=== PATIENT | female | born 1955 | race African-American/Black ===

== ENCOUNTER 2017-03-30 18:05 | Inpatient (IN) | payer OTHER ==
[2017-03-30 18:15] VITALS: BMI 34.7
--- NOTE | 2017-03-30 18:33 | HP ---
Admission [facility] Chief Complaint: i WANT TO GO TO REHAB Allergies/Adverse Reactions: Allergies Allergy/AdvReac Type Severity Reaction Status Date / Time Fish Containing Products Allergy Severe Hives Verified 08/19/16 14:03 tomato Allergy Severe Hives Verified 08/19/16 14:03 No Known Drug Allergies Allergy Verified 08/19/16 16:46 History of Present Illness: 61 YEARS OLD FEMALE WITH LONG HISTORY OF ALCOHOL COCAINE NICOTINE DEPENDENCE, HAS HIV + NEUROPATHY, ASTHMA COPD SCHIZOPHRENIA IS ADMITTED TO REHAB Exam Limitations: No Limitations - Ebola screening Have you traveled outside of the country in the last 21 days: No Have you had contact with anyone from an Ebola affected area: No Have you been sick,other than usual withdrawal symptoms: No Do you have a fever: No - Review of Systems Constitutional: Weight Stable EENT: reports: No Symptoms Reported Respiratory: reports: Cough, SOB with Exertion Cardiac: reports: No Symptoms Reported GI: reports: Indigestion : reports: No Symptoms Reported Musculoskeletal: reports: Back Pain Integumentary: reports: Change in Color (RIGHT ARM COCAINE REACTION DERMOTOLOGY) Endocrine: reports: No Symptoms Reported Hematology: reports: No Symptoms Reported Psychiatric: reports: Judgement Intact, Depressed Other Systems: Reviewed and Negative Patient History - Patient Medical History Hx Anemia: No Hx Asthma: Yes (ON ALBUTEROL) Hx Chronic Obstructive Pulmonary Disease (COPD): Yes Hx Cancer: No Hx Cardiac Disorders: No Hx Congestive Heart Failure: No Hx Hypertension: Yes (NO MEDS.) Hx Hypercholesterolemia: No Hx Pacemaker: No HX Cerebrovascular Accident: No Hx Seizures: No Hx Dementia: No Hx Diabetes: No Hx Gastrointestinal Disorders: Yes Hx Liver Disease: No Hx Genitourinary Disorders: No Hx Sexually Transmitted Disorders: No Hx Renal Disease (ESRD): No Hx Thyroid Disease: No Hx Human Immunodeficiency Virus (HIV): Yes (2010) Hx Hepatitis C: Yes Hx Depression: No Hx Suicide Attempt: Yes (2006 CUT SELF) Hx Bipolar Disorder: No Hx Schizophrenia: Yes - Patient Surgical History Past Surgical History: Yes Hx Neurologic Surgery: No Hx Cataract Extraction: No Hx Cardiac Surgery: No Hx Lung Surgery: No Hx Breast Surgery: No Hx Breast Biopsy: No Hx Abdominal Surgery: No Hx Appendectomy: No Hx Cholecystectomy: No Hx Genitourinary Surgery: No Hx Section: Yes (1976) Hx Orthopedic Surgery: No Hx Hysterectomy: No Anesthesia Reaction: No - PPD History Previous Implant?: Yes Documented Results: Negative w/proof Implanted On Prior [facility] Admission?: Yes Date: 08/21/16 PPD to be Administered?: No - Reproductive History Patient is a Female of Child Bearing Age (11 -55 yrs old): No Patient : No - Smoking Cessation Smoking history: Current every day smoker Have you smoked in the past 12 months: Yes Aproximately how many cigarettes per day: 40 Cigars Per Day: 0 Hx Chewing Tobacco Use: No Initiated information on smoking cessation: Yes 'Breaking Loose' booklet given: 03/30/17 - Substance & Tx. History Hx Alcohol Use: Yes Hx Substance Use: Yes Substance Use Type: Alcohol, Cocaine Hx Substance Use Treatment: Yes - Substances Abused Alcohol Route: Oral Frequency: Daily Amount used: 4 QART BEER Age of first use: 14 Date of Last Use: 03/27/17 Family Disease History - Family Disease History Family Disease History: CA: Father, Mother Admission Physical Exam [facility] - Vital Signs Vital Signs: Vital Signs - 24 hr 03/30/17 18:09 Temperature 96.4 F L Pulse Rate 85 Respiratory 18 Rate Blood Pressure 138/96 - Physical General Appearance: Yes: Nourished, Appropriately Dressed HEENTM: Yes: Hearing grossly Normal, Normal ENT Inspection, Normocephalic, Normal Voice Respiratory: Yes: Chest Non-Tender, Lungs Clear, Normal Breath Sounds, No Respiratory Distress, No Accessory Muscle Use Neck: Yes: Supple, Trachea in good position Breast: Yes: Breasts Symetrical Cardiology: Yes: Regular Rhythm, Regular Rate, S1, S2 Abdominal: Yes: Normal Bowel Sounds, Non Tender, Soft Genitourinary: Yes: Within Normal Limits Back: Yes: Normal Inspection Musculoskeletal: Yes: full range of Motion, Gait Steady Extremities: Yes: Normal Range of Motion, Non-Tender, Other (LESION RIGHT ARM COCAINE INDUCED) Neurological: Yes: Fully Oriented, Alert, Motor Strength 5/5, Normal Mood/Affect , Normal Response Integumentary: Yes: Warm, Rash (RIGHT ARM) Lymphatic: Yes: Within Normal Limits - Diagnostic (1) COPD (chronic obstructive pulmonary disease) Current Visit: Yes Status: Chronic Qualifiers: COPD type: emphysema Emphysema type: other Qualified Code(s): J43.8 - Other emphysema (2) HIV (human immunodeficiency virus infection) Current Visit: Yes Status: Chronic Comment: TRIUMP (3) Hepatitis C Current Visit: Yes Status: Resolved Qualifiers: Viral hepatitis chronicity: unspecified Comment: SCHEDULE FOR TREATMENT (4) Hypertension Current Visit: Yes Status: Resolved Qualifiers: Hypertension type: essential hypertension Qualified Code(s): I10 - Essential (primary) hypertension Comment: NO TREATMENT (5) Nicotine dependence Current Visit: Yes Status: Acute Qualifiers: Nicotine product type: cigarettes Substance use status: in withdrawal Qualified Code(s): F17.213 - Nicotine dependence, cigarettes, with withdrawal (6) Alcohol dependence with uncomplicated withdrawal Current Visit: Yes Status: Acute (7) Schizophrenia simplex Current Visit: Yes Status: Suspected (8) Skin lesion Current Visit: Yes Status: Acute Comment: RIGHT ARM Cleared for Admission S - Detox or Rehab [facility] Level of Care: Observation Bed Detox Regimen/Protocol: Not Applicable Claeared for Rehab Admission: Yes [facility] Breath Alcohol Content Breath Alcohol Content: 0 Urine Pregancy Test - Result Urine Test Results: Negative- NO Line Present Urine Drug Screen - Results Drug Screen Negative: No Urine Drug Screen Results: [place]-Cocaine, TCA-Tricyclic Antidepress
[2017-03-30] MEDS ORDERED: P-EPHED 60MG/TRIPROLIDI 2.5MG TABLET PO PRN (18:38)
[2017-03-30] MEDS ORDERED: MAGNESIUM CITRATE 300 ML BOTTLE PO PRN (18:38)
[2017-03-30] MEDS ORDERED: diphenhydrAMINE HCL 50 MG CAPSULE PO PRN (18:38)
[2017-03-30] MEDS ORDERED: LOPERAMIDE HCL 2 MG CAPSULE PO PRN (18:38)
[2017-03-30] MEDS ORDERED: MAGNESIUM HYDROX 2400MG/30ML ORAL SUSPENSION 30 ML CUP PO PRN (18:38)
[2017-03-30] MEDS ORDERED: MAG HYDROX/AL HYDROX/SIMETH 30 ML UNIT-DOSE CUP PO PRN (18:38)
[2017-03-30] MEDS ORDERED: NICOTINE POLACRILEX 4 MG GUM BC PRN (18:38)
[2017-03-30] MEDS ORDERED: BACITRACIN 0.9 GM PACKET TP ONE (18:41)
[2017-03-30] MEDS: GABAPENTIN 300 MG CAPSULE (FP) PO SCH (21:40)
[2017-03-30] MEDS: THIAMINE HCL 100 MG TABLET (FP) PO SCH (21:40)
[2017-03-30] MEDS: BUDESONIDE/FORMETEROL FUMARATE 80/4.5 mcg INHALER IH SCH (21:41)
[2017-03-30] MEDS: MINERAL OIL/PETROLAT/WATER TOPICAL CREAM 113 GM JAR TP SCH (21:42)
--- NOTE | 2017-03-30 22:18 | PN ---
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 On risperdal 2 mg/hs + seroquel 200 mg/hs + trazodone 200 mg/hs. Already known to [facility] from a previous admission in 2016. 61 y/o female referred for rehabilitation treatment. Issues : alcohol and cocaine dependence. Co-morbid with schizophrenia and nicotine dependence. Medications confirmed via review of pharmacy claims. Filled scripts at [facility] on 03/21 + 03/07 + 02/07/17. Previous records from [facility] :read and appreciated.Spoke to patient via telephone. She states that she took her medications last night.Eager to resume these medications. Medical history is appreciated through [facility] report. BP = 138/96 P = 85 R = 18 .Noted. Plan : Risperdal 1 mg po now (one dose) Seroquel 100 mg po now (one dose) Trazodone 100 mg now (one dose) Brief discussion of side effects/benefits of each drug with patient. She states that she has been on this regimen for years. As a caution,patient is granted only ONE dose (reduced) of each medication. Coverage psychiatrist will follow in the morning.Patient is in agreement with this careplan.
[2017-03-30] MEDS ORDERED: risperiDONE 1 MG TABLET (FP) PO STA (22:37)
[2017-03-30] MEDS ORDERED: QUEtiapine FUMARATE 100 MG TABLET (FP) PO STA (22:42)
[2017-03-30] MEDS ORDERED: traZODone HCL 100 MG TABLET (FP) PO STA (22:43)
[2017-03-31] LABS: URINE APPEARANCE CLOUDY; URINE BILIRUBIN NEGATIVE (NEGATIVE); URINE BLOOD NEGATIVE (NEGATIVE); URINE COLOR DKYELLOW; URINE GLUCOSE (UA) NEGATIVE (NEGATIVE); URINE KETONE NEGATIVE (NEGATIVE); URINE NITRITE NEGATIVE (NEGATIVE); URINE PROTEIN NEGATIVE (NEGATIVE); URINE UROBILINOGEN 4.0 E.U/dl E.U./dl (0.2-1.0)
[2017-03-31 00:06] LABS: URINE LEUK ESTERASE 1+ (NEGATIVE)
[2017-03-31 00:10] LABS: URINE BACTERIA MANY /hpf (NONE SEEN); URINE MUCUS RARE; URINE RBC 1 /hpf (0-3); URINE WBC 45 /hpf (3-5)
[2017-03-31] MEDS: GABAPENTIN 300 MG CAPSULE (FP) PO SCH ×3 (06:35→21:09)
[2017-03-31] MEDS ORDERED: PT OWN MED DRAWER 7, Y5N ONE (08:17)
[2017-03-31] MEDS: NICOTINE 21 MG/24 HOURS TOPICAL PATCH TD SCH (09:42)
[2017-03-31] MEDS: BUDESONIDE/FORMETEROL FUMARATE 80/4.5 mcg INHALER IH SCH ×2 (09:43→21:08)
[2017-03-31] MEDS: PRENATAL VITAMINS W/ FOLIC ACID TABLET (FP) PO SCH (09:43)
[2017-03-31 10:06] LABS: MCH 34.1 pg (25.7-33.7); MCHC 34.3 g/dl (32.0-36.0); MEAN CELL VOLUME 99.3 fl (80-96); MEAN PLT VOLUME 9.5 fl (7.5-11.1); PLATELET COUNT 147 K/MM3 (134-434); RDW 12.5 % (11.6-15.6)
[2017-03-31 10:29] LABS: ALBUMIN 2.9 g/dl (3.4-5.0); ALK PHOS 98 U/L (45-117); ANION GAP 7 (8-16); BILIRUBIN,TOTAL 0.3 mg/dL (0.2-1.0); CALCIUM 8.5 mg/dL (8.5-10.1); CO2 30 mmol/L (21-32); COCKROFT - GAULT 144.2195; CREATININE 0.6 mg/dL (0.55-1.02); GLUCOSE,RANDOM 101 mg/dL (74-106); SGOT/AST 56 U/L (15-37); SGPT/ALT 53 U/L (12-78); TOT PROT 6.5 g/dl (6.4-8.2)
[2017-03-31] MEDS ORDERED: RANITIDINE HCL 150 MG TABLET (FP) PO SCH ×2 (13:00)
[2017-03-31] MEDS: COLLOIDAL OATMEAL 1 BAR EACH TP PRN (13:21)
[2017-03-31] MEDS ORDERED: POTASSIUM CHLORIDE TABS 20 MEQ TABLET.ER (FP) PO ONE (14:35)
--- NOTE | 2017-03-31 14:39 | PN ---
S Progress Note Note: Pt. has a hx. of syphillis previously treated with IM bicillin,no treatment needed at this time.
--- NOTE | 2017-03-31 17:36 | EKG ---
Test Reason : Blood Pressure : / mmHG Vent. Rate : 072 BPM Atrial Rate : 072 BPM P-R Int : 152 ms QRS Dur : 080 ms QT Int : 412 ms P-R-T Axes : 075 060 074 degrees QTc Int : 451 ms SINUS RHYTHM WITH PREMATURE ATRIAL COMPLEXES OTHERWISE NORMAL ECG NO PREVIOUS ECGS AVAILABLE Confirmed by FLORI VALDIVIA, JADE ([id number]) on 03/31/2017 5:35:53 PM Referred By: Confirmed By:JADE RUBY MD
[2017-03-31] MEDS: risperiDONE 2 MG TABLET PO SCH (21:08)
[2017-03-31] MEDS: traZODone HCL 100 MG TABLET (FP) PO SCH (21:09)
[2017-03-31] MEDS: QUEtiapine FUMARATE 200 MG TABLET PO SCH (21:09)
[2017-03-31] MEDS: MINERAL OIL/PETROLAT/WATER TOPICAL CREAM 113 GM JAR TP SCH (21:09)
[2017-03-31] MEDS: POTASSIUM CHLORIDE TABS 20 MEQ TABLET.ER (FP) PO SCH (21:09)
[2017-03-31] MEDS: THIAMINE HCL 100 MG TABLET (FP) PO SCH (21:09)
[2017-04-01] MEDS: GABAPENTIN 300 MG CAPSULE (FP) PO SCH ×3 (06:52→21:11)
[2017-04-01] MEDS: RANITIDINE HCL 150 MG TABLET (FP) PO SCH (07:29)
[2017-04-01] MEDS ORDERED: PT OWN MED DRAWER 7, Y5N ONE ×2 (08:09→21:08)
--- NOTE | 2017-04-01 08:56 | HP ---
Psychiatrist Admission - Data Date of interview: 04/01/17 Admission source: [facility] Identifying data: This is the second 3e inpatient rehabilitation admission for this 61 year old single black female mother of 3, supported by [facility] and residing alone. Medical History: HTN, COPD, HIV+ since 2009, Hep C, Asthma, peripheral neuropathy. Smokes cigarettes 2 PPD. Psychiatric History: Patient reports she was diagnosed with Schizoprenia and sees at [facility] outpatient clinic, she denies history of psychiatric hospitalizations. Currently on Trazodone 100 mg po hs, Seroquel 200 mg am and 400 mg po hs, Risperdal 1mg po hs. Physical/Sexual Abuse/Trauma History: Denies history of sexual, physical and verbal abuse. Vital Signs: Vital Signs - 24 hr 04/01/17 04/01/17 04/01/17 00:30 03:30 07:21 Temperature 98.2 F Pulse Rate 92 H Respiratory 17 18 18 Rate Blood Pressure 124/84 Allergies/Adverse Reactions: Allergies Allergy/AdvReac Type Severity Reaction Status Date / Time Fish Containing Products Allergy Severe Hives Verified 08/19/16 14:03 tomato Allergy Severe Hives Verified 08/19/16 14:03 No Known Drug Allergies Allergy Verified 08/19/16 16:46 Date of last physical exam: 03/30/17 Concur with the findings of this exam: Yes - Substance Abuse/Tx History Hx Alcohol Use: Yes Hx Substance Use: Yes Substance Use Type: Alcohol (4 quarts of beer), Cocaine Hx Substance Use Treatment: Yes (3E in 2016) - Admission Criteria Previous failed treatment: Yes Poor recovery environment: Yes Comorbidities: Yes Lacks judgement: Yes Mental Status Exam - Mental Status Exam Alert and Oriented to: Time, Place, Person Cognitive Function: Grossly Intact Patient Appearance: Well Groomed Mood: Irritable Affect: Mood Congruent Patient Behavior: Appropriate, Cooperative Speech Pattern: Clear, Appropriate Voice Loudness: Normal Thought Process: Intact, Goal Oriented Thought Disorder: Not Present Hallucinations: Denies Suicidal Ideation: Denies Homicidal Ideation: Denies Insight/Judgement: Fair Sleep: Fair Appetite: Fair Muscle strength/Tone: Normal Gait/Station: Normal Psychiatric Findings - Problem List ([place] 1, 2,3) (1) Nicotine dependence Current Visit: Yes Status: Acute Qualifiers: Nicotine product type: cigarettes Substance use status: in withdrawal Qualified Code(s): F17.213 - Nicotine dependence, cigarettes, with withdrawal (2) COPD (chronic obstructive pulmonary disease) Current Visit: Yes Status: Chronic Qualifiers: COPD type: emphysema Emphysema type: other Qualified Code(s): J43.8 - Other emphysema (3) HIV (human immunodeficiency virus infection) Current Visit: Yes Status: Chronic Comment: TRIUMP (4) Hepatitis C Current Visit: Yes Status: Resolved Qualifiers: Viral hepatitis chronicity: unspecified Comment: SCHEDULE FOR TREATMENT (5) Hypertension Current Visit: Yes Status: Resolved Qualifiers: Hypertension type: essential hypertension Qualified Code(s): I10 - Essential (primary) hypertension Comment: NO TREATMENT (6) Paranoid schizophrenia Current Visit: Yes Status: Acute (7) Alcohol dependence Current Visit: Yes Status: Acute (8) Cocaine dependence Current Visit: Yes Status: Acute - Initial Treatment Plan Initial Treatment Plan: Will continue her current medications, monitor progress as needed.
[2017-04-01] MEDS: BUDESONIDE/FORMETEROL FUMARATE 80/4.5 mcg INHALER IH SCH ×2 (09:09→21:13)
[2017-04-01] MEDS: NICOTINE 21 MG/24 HOURS TOPICAL PATCH TD SCH (09:09)
[2017-04-01] MEDS: POTASSIUM CHLORIDE TABS 20 MEQ TABLET.ER (FP) PO SCH ×2 (09:09→21:11)
[2017-04-01] MEDS: PRENATAL VITAMINS W/ FOLIC ACID TABLET (FP) PO SCH (09:09)
[2017-04-01] MEDS: ALBUTEROL SO4 6.7 GM HFA INHALER IH PRN (17:25)
[2017-04-01] MEDS: ACETAMINOPHEN 325 MG TABLET (FP) PO PRN (18:59)
[2017-04-01] MEDS: risperiDONE 2 MG TABLET PO SCH (21:11)
[2017-04-01] MEDS: THIAMINE HCL 100 MG TABLET (FP) PO SCH (21:11)
[2017-04-01] MEDS: QUEtiapine FUMARATE 200 MG TABLET PO SCH (21:11)
[2017-04-01] MEDS: traZODone HCL 100 MG TABLET (FP) PO SCH (21:11)
[2017-04-01] MEDS: MINERAL OIL/PETROLAT/WATER TOPICAL CREAM 113 GM JAR TP SCH (21:13)
[2017-04-02] MEDS: GABAPENTIN 300 MG CAPSULE (FP) PO SCH ×3 (06:56→21:12)
[2017-04-02] MEDS ORDERED: PT OWN MED DRAWER 7, Y5N ONE ×3 (08:03→21:15)
[2017-04-02] MEDS: PRENATAL VITAMINS W/ FOLIC ACID TABLET (FP) PO SCH (09:12)
[2017-04-02] MEDS: NICOTINE 21 MG/24 HOURS TOPICAL PATCH TD SCH (09:12)
[2017-04-02] MEDS: POTASSIUM CHLORIDE TABS 20 MEQ TABLET.ER (FP) PO SCH ×2 (09:12→21:12)
[2017-04-02] MEDS: BUDESONIDE/FORMETEROL FUMARATE 80/4.5 mcg INHALER IH SCH ×2 (09:12→21:13)
[2017-04-02] MEDS: RANITIDINE HCL 150 MG TABLET (FP) PO SCH (09:13)
[2017-04-02] MEDS: traZODone HCL 100 MG TABLET (FP) PO SCH (21:12)
[2017-04-02] MEDS: risperiDONE 2 MG TABLET PO SCH (21:12)
[2017-04-02] MEDS: QUEtiapine FUMARATE 200 MG TABLET PO SCH (21:12)
[2017-04-02] MEDS: MINERAL OIL/PETROLAT/WATER TOPICAL CREAM 113 GM JAR TP SCH (21:14)
[2017-04-02] MEDS: ALBUTEROL SO4 6.7 GM HFA INHALER IH PRN (21:14)
[2017-04-02] MEDS: THIAMINE HCL 100 MG TABLET (FP) PO SCH (21:55)
[2017-04-03] MEDS: GABAPENTIN 300 MG CAPSULE (FP) PO SCH ×3 (06:30→21:06)
[2017-04-03] MEDS ORDERED: PT OWN MED DRAWER 7, Y5N ONE ×2 (08:03→20:24)
[2017-04-03] MEDS: PRENATAL VITAMINS W/ FOLIC ACID TABLET (FP) PO SCH (09:39)
[2017-04-03] MEDS: POTASSIUM CHLORIDE TABS 20 MEQ TABLET.ER (FP) PO SCH ×2 (09:39→21:07)
[2017-04-03] MEDS: RANITIDINE HCL 150 MG TABLET (FP) PO SCH (09:39)
[2017-04-03] MEDS: BUDESONIDE/FORMETEROL FUMARATE 80/4.5 mcg INHALER IH SCH ×2 (09:40→22:15)
[2017-04-03] MEDS: NICOTINE 21 MG/24 HOURS TOPICAL PATCH TD SCH (09:41)
[2017-04-03] MEDS: THIAMINE HCL 100 MG TABLET (FP) PO SCH (21:06)
[2017-04-03] MEDS: QUEtiapine FUMARATE 200 MG TABLET PO SCH (21:06)
[2017-04-03] MEDS: risperiDONE 2 MG TABLET PO SCH (21:07)
[2017-04-03] MEDS: traZODone HCL 100 MG TABLET (FP) PO SCH (21:07)
[2017-04-03] MEDS: hydrOXYzine PAMOATE 50 MG CAPSULE (FP) PO PRN (21:08)
[2017-04-03] MEDS: MINERAL OIL/PETROLAT/WATER TOPICAL CREAM 113 GM JAR TP SCH (22:14)
[2017-04-04] MEDS: GABAPENTIN 300 MG CAPSULE (FP) PO SCH ×3 (06:36→21:03)
[2017-04-04] MEDS ORDERED: PT OWN MED DRAWER 7, Y5N ONE ×2 (08:24→23:00)
[2017-04-04] MEDS: BUDESONIDE/FORMETEROL FUMARATE 80/4.5 mcg INHALER IH SCH ×2 (09:47→21:04)
[2017-04-04] MEDS: NICOTINE 21 MG/24 HOURS TOPICAL PATCH TD SCH (09:47)
[2017-04-04] MEDS: POTASSIUM CHLORIDE TABS 20 MEQ TABLET.ER (FP) PO SCH ×2 (09:48→21:05)
[2017-04-04] MEDS: RANITIDINE HCL 150 MG TABLET (FP) PO SCH (09:48)
[2017-04-04] MEDS: PRENATAL VITAMINS W/ FOLIC ACID TABLET (FP) PO SCH (09:48)
[2017-04-04] MEDS: QUEtiapine FUMARATE 200 MG TABLET PO SCH (21:03)
[2017-04-04] MEDS: risperiDONE 2 MG TABLET PO SCH (21:03)
[2017-04-04] MEDS: THIAMINE HCL 100 MG TABLET (FP) PO SCH (21:03)
[2017-04-04] MEDS: traZODone HCL 100 MG TABLET (FP) PO SCH (21:03)
[2017-04-04] MEDS: MINERAL OIL/PETROLAT/WATER TOPICAL CREAM 113 GM JAR TP SCH (21:05)
[2017-04-05] MEDS: GABAPENTIN 300 MG CAPSULE (FP) PO SCH ×3 (06:36→21:17)
[2017-04-05] MEDS ORDERED: PT OWN MED DRAWER 7, Y5N ONE ×4 (08:30→23:55)
[2017-04-05] MEDS: RANITIDINE HCL 150 MG TABLET (FP) PO SCH (09:09)
[2017-04-05] MEDS: POTASSIUM CHLORIDE TABS 20 MEQ TABLET.ER (FP) PO SCH ×2 (09:09→21:16)
[2017-04-05] MEDS: NICOTINE 21 MG/24 HOURS TOPICAL PATCH TD SCH (09:10)
[2017-04-05] MEDS: BUDESONIDE/FORMETEROL FUMARATE 80/4.5 mcg INHALER IH SCH ×2 (09:10→21:19)
[2017-04-05] MEDS: PRENATAL VITAMINS W/ FOLIC ACID TABLET (FP) PO SCH (09:10)
[2017-04-05] MEDS: ACETAMINOPHEN 325 MG TABLET (FP) PO PRN (16:39)
[2017-04-05] MEDS: THIAMINE HCL 100 MG TABLET (FP) PO SCH (21:16)
[2017-04-05] MEDS: risperiDONE 2 MG TABLET PO SCH (21:17)
[2017-04-05] MEDS: QUEtiapine FUMARATE 200 MG TABLET PO SCH (21:17)
[2017-04-05] MEDS: MINERAL OIL/PETROLAT/WATER TOPICAL CREAM 113 GM JAR TP SCH (21:17)
[2017-04-05] MEDS: traZODone HCL 100 MG TABLET (FP) PO SCH (21:20)
[2017-04-06] MEDS: GABAPENTIN 300 MG CAPSULE (FP) PO SCH ×3 (06:46→21:13)
[2017-04-06] MEDS ORDERED: PT OWN MED DRAWER 7, Y5N ONE ×4 (08:35→23:03)
[2017-04-06] MEDS: POTASSIUM CHLORIDE TABS 20 MEQ TABLET.ER (FP) PO SCH ×2 (09:43→21:13)
[2017-04-06] MEDS: RANITIDINE HCL 150 MG TABLET (FP) PO SCH (09:44)
[2017-04-06] MEDS: NICOTINE 21 MG/24 HOURS TOPICAL PATCH TD SCH (09:44)
[2017-04-06] MEDS: PRENATAL VITAMINS W/ FOLIC ACID TABLET (FP) PO SCH (09:44)
[2017-04-06] MEDS: BUDESONIDE/FORMETEROL FUMARATE 80/4.5 mcg INHALER IH SCH ×2 (09:44→21:14)
[2017-04-06] MEDS: ACETAMINOPHEN 325 MG TABLET (FP) PO PRN (20:07)
[2017-04-06] MEDS: traZODone HCL 100 MG TABLET (FP) PO SCH (21:12)
[2017-04-06] MEDS: risperiDONE 2 MG TABLET PO SCH (21:13)
[2017-04-06] MEDS: MINERAL OIL/PETROLAT/WATER TOPICAL CREAM 113 GM JAR TP SCH (21:13)
[2017-04-06] MEDS: QUEtiapine FUMARATE 200 MG TABLET PO SCH (21:13)
[2017-04-06] MEDS: THIAMINE HCL 100 MG TABLET (FP) PO SCH (21:14)
[2017-04-07] MEDS: GABAPENTIN 300 MG CAPSULE (FP) PO SCH ×3 (06:42→21:05)
[2017-04-07] MEDS ORDERED: PT OWN MED DRAWER 7, Y5N ONE ×5 (08:30→22:53)
[2017-04-07] MEDS: RANITIDINE HCL 150 MG TABLET (FP) PO SCH (09:42)
[2017-04-07] MEDS: POTASSIUM CHLORIDE TABS 20 MEQ TABLET.ER (FP) PO SCH (09:42)
[2017-04-07] MEDS: BUDESONIDE/FORMETEROL FUMARATE 80/4.5 mcg INHALER IH SCH ×2 (09:42→21:08)
[2017-04-07] MEDS: NICOTINE 21 MG/24 HOURS TOPICAL PATCH TD SCH (09:42)
[2017-04-07] MEDS: PRENATAL VITAMINS W/ FOLIC ACID TABLET (FP) PO SCH (09:42)
[2017-04-07 10:01] LABS: COCKROFT - GAULT 144.2195; CREATININE 0.6 mg/dL (0.55-1.02)
--- NOTE | 2017-04-07 12:49 | PN ---
[facility] Progress Note Note: k is 4.0 will d/c potassium
[2017-04-07] MEDS: FLUOCINONIDE 0.05% CREAM (15 GM TUBE) TP SCH ×2 (15:00→21:08)
[2017-04-07] MEDS: risperiDONE 2 MG TABLET PO SCH (21:05)
[2017-04-07] MEDS: THIAMINE HCL 100 MG TABLET (FP) PO SCH (21:05)
[2017-04-07] MEDS: QUEtiapine FUMARATE 200 MG TABLET PO SCH (21:05)
[2017-04-07] MEDS: traZODone HCL 100 MG TABLET (FP) PO SCH (21:05)
[2017-04-07] MEDS: MINERAL OIL/PETROLAT/WATER TOPICAL CREAM 113 GM JAR TP SCH (21:07)
[2017-04-07] MEDS: hydrOXYzine PAMOATE 50 MG CAPSULE (FP) PO PRN (22:53)
[2017-04-08] MEDS: GABAPENTIN 300 MG CAPSULE (FP) PO SCH ×3 (06:36→21:11)
[2017-04-08] MEDS ORDERED: PT OWN MED DRAWER 7, Y5N ONE ×4 (08:24→19:19)
[2017-04-08] MEDS: PRENATAL VITAMINS W/ FOLIC ACID TABLET (FP) PO SCH (10:00)
[2017-04-08] MEDS: RANITIDINE HCL 150 MG TABLET (FP) PO SCH (10:00)
[2017-04-08] MEDS: NICOTINE 21 MG/24 HOURS TOPICAL PATCH TD SCH (10:01)
[2017-04-08] MEDS: BUDESONIDE/FORMETEROL FUMARATE 80/4.5 mcg INHALER IH SCH ×2 (10:01→21:13)
[2017-04-08] MEDS: FLUOCINONIDE 0.05% CREAM (15 GM TUBE) TP SCH ×2 (10:03→21:12)
[2017-04-08] MEDS: ALBUTEROL SO4 6.7 GM HFA INHALER IH PRN (15:12)
[2017-04-08] MEDS: ACETAMINOPHEN 325 MG TABLET (FP) PO PRN (18:02)
[2017-04-08] MEDS: traZODone HCL 100 MG TABLET (FP) PO SCH (21:11)
[2017-04-08] MEDS: risperiDONE 2 MG TABLET PO SCH (21:12)
[2017-04-08] MEDS: QUEtiapine FUMARATE 200 MG TABLET PO SCH (21:12)
[2017-04-08] MEDS: THIAMINE HCL 100 MG TABLET (FP) PO SCH (21:12)
[2017-04-08] MEDS: diphenhydrAMINE HCL 25 MG CAPSULE (FP) PO SCH (21:13)
[2017-04-08] MEDS: COLLOIDAL OATMEAL 1 BAR EACH TP PRN (22:10)
[2017-04-08] MEDS: MINERAL OIL/PETROLAT/WATER TOPICAL CREAM 113 GM JAR TP SCH (22:11)
[2017-04-09] MEDS: GABAPENTIN 300 MG CAPSULE (FP) PO SCH ×3 (07:00→21:09)
[2017-04-09] MEDS ORDERED: PT OWN MED DRAWER 7, Y5N ONE ×6 (07:01→23:07)
[2017-04-09] MEDS: RANITIDINE HCL 150 MG TABLET (FP) PO SCH (09:30)
[2017-04-09] MEDS: PRENATAL VITAMINS W/ FOLIC ACID TABLET (FP) PO SCH (09:30)
[2017-04-09] MEDS: BUDESONIDE/FORMETEROL FUMARATE 80/4.5 mcg INHALER IH SCH ×2 (09:31→21:10)
[2017-04-09] MEDS: NICOTINE 21 MG/24 HOURS TOPICAL PATCH TD SCH (09:31)
[2017-04-09] MEDS: ALBUTEROL SO4 6.7 GM HFA INHALER IH PRN (09:31)
[2017-04-09] MEDS: FLUOCINONIDE 0.05% CREAM (15 GM TUBE) TP SCH ×2 (09:32→21:11)
[2017-04-09] MEDS: THIAMINE HCL 100 MG TABLET (FP) PO SCH (21:09)
[2017-04-09] MEDS: diphenhydrAMINE HCL 25 MG CAPSULE (FP) PO SCH (21:09)
[2017-04-09] MEDS: risperiDONE 2 MG TABLET PO SCH (21:09)
[2017-04-09] MEDS: QUEtiapine FUMARATE 200 MG TABLET PO SCH (21:09)
[2017-04-09] MEDS: traZODone HCL 100 MG TABLET (FP) PO SCH (21:09)
[2017-04-09] MEDS: MINERAL OIL/PETROLAT/WATER TOPICAL CREAM 113 GM JAR TP SCH (21:13)
[2017-04-10] MEDS: GABAPENTIN 300 MG CAPSULE (FP) PO SCH ×3 (06:33→21:15)
[2017-04-10] MEDS ORDERED: PT OWN MED DRAWER 7, Y5N ONE ×3 (08:14→23:47)
[2017-04-10] MEDS: RANITIDINE HCL 150 MG TABLET (FP) PO SCH (09:30)
[2017-04-10] MEDS: BUDESONIDE/FORMETEROL FUMARATE 80/4.5 mcg INHALER IH SCH ×2 (09:30→21:18)
[2017-04-10] MEDS: FLUOCINONIDE 0.05% CREAM (15 GM TUBE) TP SCH ×2 (09:30→21:17)
[2017-04-10] MEDS: PRENATAL VITAMINS W/ FOLIC ACID TABLET (FP) PO SCH (09:30)
[2017-04-10] MEDS: NICOTINE 21 MG/24 HOURS TOPICAL PATCH TD SCH (09:31)
[2017-04-10] MEDS: risperiDONE 2 MG TABLET PO SCH (21:15)
[2017-04-10] MEDS: traZODone HCL 100 MG TABLET (FP) PO SCH (21:15)
[2017-04-10] MEDS: THIAMINE HCL 100 MG TABLET (FP) PO SCH (21:15)
[2017-04-10] MEDS: QUEtiapine FUMARATE 200 MG TABLET PO SCH (21:15)
[2017-04-10] MEDS: diphenhydrAMINE HCL 25 MG CAPSULE (FP) PO SCH (21:15)
[2017-04-10] MEDS: MINERAL OIL/PETROLAT/WATER TOPICAL CREAM 113 GM JAR TP SCH (21:17)
[2017-04-11] MEDS: GABAPENTIN 300 MG CAPSULE (FP) PO SCH ×3 (06:58→21:09)
[2017-04-11] MEDS ORDERED: PT OWN MED DRAWER 7, Y5N ONE (08:02)
[2017-04-11] MEDS: ACETAMINOPHEN 325 MG TABLET (FP) PO PRN (09:11)
[2017-04-11] MEDS: RANITIDINE HCL 150 MG TABLET (FP) PO SCH (09:12)
[2017-04-11] MEDS: NICOTINE 21 MG/24 HOURS TOPICAL PATCH TD SCH (09:12)
[2017-04-11] MEDS: FLUOCINONIDE 0.05% CREAM (15 GM TUBE) TP SCH ×2 (09:13→21:11)
[2017-04-11] MEDS: PRENATAL VITAMINS W/ FOLIC ACID TABLET (FP) PO SCH (09:13)
[2017-04-11] MEDS: BUDESONIDE/FORMETEROL FUMARATE 80/4.5 mcg INHALER IH SCH ×2 (09:13→21:11)
[2017-04-11] MEDS: guaiFENesin/D-METHORPHAN HB 10 ML UNIT-DOSE CUPS PO PRN (14:28)
[2017-04-11] MEDS: MENTHOL/PHENOL 1 EACH UD MM PRN (14:29)
[2017-04-11] MEDS: THIAMINE HCL 100 MG TABLET (FP) PO SCH (21:08)
[2017-04-11] MEDS: traZODone HCL 100 MG TABLET (FP) PO SCH (21:09)
[2017-04-11] MEDS: QUEtiapine FUMARATE 200 MG TABLET PO SCH (21:09)
[2017-04-11] MEDS: risperiDONE 2 MG TABLET PO SCH (21:09)
[2017-04-11] MEDS: diphenhydrAMINE HCL 25 MG CAPSULE (FP) PO SCH (21:10)
[2017-04-11] MEDS: MINERAL OIL/PETROLAT/WATER TOPICAL CREAM 113 GM JAR TP SCH (21:11)
[2017-04-12] MEDS: GABAPENTIN 300 MG CAPSULE (FP) PO SCH ×3 (06:25→21:02)
[2017-04-12] MEDS: guaiFENesin/D-METHORPHAN HB 10 ML UNIT-DOSE CUPS PO PRN (06:27)
[2017-04-12] MEDS ORDERED: PT OWN MED DRAWER 7, Y5N ONE ×4 (08:23→21:04)
--- NOTE | 2017-04-12 09:52 | PN ---
[facility] Progress Note Note: Pt. c/o chest pain after an upsetting phone call with her daughter. Vital Signs - 8 hr 04/12/17 04/12/17 04/12/17 03:30 06:44 09:00 Temperature 98.4 F 97.5 F L Pulse Rate 84 83 Respiratory 18 18 18 Rate Blood Pressure 108/76 105/73 O2 Sat by Pulse 96 Oximetry (%) Laboratory Last Values WBC 5.0 K/mm3 (4.0-10.0) 03/31/17 07:00 RBC 3.91 M/mm3 (3.60-5.2) 03/31/17 07:00 Hgb 13.3 GM/dL (10.7-15.3) 03/31/17 07:00 Hct 38.9 % (32.4-45.2) 03/31/17 07:00 MCV 99.3 fl (80-96) H 03/31/17 07:00 MCHC 34.3 g/dl (32.0-36.0) 03/31/17 07:00 RDW 12.5 % (11.6-15.6) 03/31/17 07:00 Plt Count 147 K/MM3 (134-434) 03/31/17 07:00 MPV 9.5 fl (7.5-11.1) 03/31/17 07:00 Sodium 142 mmol/L (136-145) 04/07/17 07:00 Potassium 4.0 mmol/L (3.5-5.1) D 04/07/17 07:00 Chloride 107 mmol/L (98-107) 04/07/17 07:00 Carbon Dioxide 27 mmol/L (21-32) 04/07/17 07:00 Anion Gap 8 (8-16) 04/07/17 07:00 BUN 11 mg/dL (7-18) D 04/07/17 07:00 Creatinine 0.6 mg/dL (0.55-1.02) 04/07/17 07:00 Creat Clearance w eGFR > 60 (>60) 03/31/17 07:00 Random Glucose 82 mg/dL (74-106) 04/07/17 07:00 Calcium 9.0 mg/dL (8.5-10.1) 04/07/17 07:00 Total Bilirubin 0.3 mg/dL (0.2-1.0) D 03/31/17 07:00 AST 56 U/L (15-37) H D 03/31/17 07:00 ALT 53 U/L (12-78) D 03/31/17 07:00 Alkaline Phosphatase 98 U/L (45-117) 03/31/17 07:00 Total Protein 6.5 g/dl (6.4-8.2) 03/31/17 07:00 Albumin 2.9 g/dl (3.4-5.0) L 03/31/17 07:00 Urine Color Dkyellow 03/30/17 23:40 Urine Appearance Cloudy 03/30/17 23:40 Urine pH 6.0 (5.0-8.0) 03/30/17 23:40 Ur Specific [place] 1.015 (1.005-1.025) 03/30/17 23:40 Urine Protein Negative (NEGATIVE) 03/30/17 23:40 Urine Glucose (UA) Negative (NEGATIVE) 03/30/17 23:40 Urine Ketones Negative (NEGATIVE) 03/30/17 23:40 Urine Blood Negative (NEGATIVE) 03/30/17 23:40 Urine Nitrite Negative (NEGATIVE) 03/30/17 23:40 Urine Bilirubin Negative (NEGATIVE) 03/30/17 23:40 Urine Urobilinogen 4.0 e.u/dl E.U./dl (0.2-1.0) H 03/30/17 23:40 Ur Leukocyte Esterase 1+ (NEGATIVE) H D 03/30/17 23:40 Urine RBC 1 /hpf (0-3) 03/30/17 23:40 Urine WBC 45 /hpf (3-5) 03/30/17 23:40 Ur Epithelial Cells Rare /hpf (FEW) 03/30/17 23:40 Urine Bacteria Many /hpf (NONE SEEN) 03/30/17 23:40 Urine Mucus Rare 03/30/17 23:40 RPR Titer Reactive 1:2 (NONREACTIVE) H D 03/31/17 07:00 T.pallidum Ab (MHA) Previously reactive (NONREACTIVE) 03/31/17 07:00 Chest : Slight tenderness along costo-chondral joints. Lungs : clear to A&P Heart : RR,no murmur EKG : NSR, no significant changes from 03/30/17 Dx. : non-specific chest pain P : Aspirin 81mg stat O2 via nasal cannula 2L/min cardiac enzymes stat
[2017-04-12] MEDS ORDERED: ASPIRIN 325 MG ENTERIC COATED TABLET (FP) PO ONE (09:54)
[2017-04-12] MEDS: BUDESONIDE/FORMETEROL FUMARATE 80/4.5 mcg INHALER IH SCH ×2 (10:57→21:02)
[2017-04-12] MEDS: RANITIDINE HCL 150 MG TABLET (FP) PO SCH (10:57)
[2017-04-12] MEDS: PRENATAL VITAMINS W/ FOLIC ACID TABLET (FP) PO SCH (10:57)
[2017-04-12] MEDS: NICOTINE 21 MG/24 HOURS TOPICAL PATCH TD SCH (10:58)
[2017-04-12] MEDS: FLUOCINONIDE 0.05% CREAM (15 GM TUBE) TP SCH ×2 (10:59→21:05)
[2017-04-12 12:57] LABS: TROPONIN I < 0.02 ng/ml (0.00-0.05)
--- NOTE | 2017-04-12 14:18 | PN ---
[facility] Progress Note Note: No more Chest Pain,pt. is up and about attending group. Vital Signs - 8 hr 04/12/17 04/12/17 06:44 09:00 Temperature 98.4 F 97.5 F L Pulse Rate 84 83 Respiratory 18 18 Rate Blood Pressure 108/76 105/73 O2 Sat by Pulse 96 Oximetry (%) Laboratory Results - last 24 hr 04/12/17 10:15 Creatine Kinase 52 Troponin I < 0.02 cardiac enzymes are WNL Dx. : Non-Cardiac chest pain
[2017-04-12] MEDS: ALBUTEROL SO4 6.7 GM HFA INHALER IH PRN (21:02)
[2017-04-12] MEDS: diphenhydrAMINE HCL 25 MG CAPSULE (FP) PO SCH (21:02)
[2017-04-12] MEDS: THIAMINE HCL 100 MG TABLET (FP) PO SCH (21:03)
[2017-04-12] MEDS: QUEtiapine FUMARATE 200 MG TABLET PO SCH (21:03)
[2017-04-12] MEDS: traZODone HCL 100 MG TABLET (FP) PO SCH (21:03)
[2017-04-12] MEDS: risperiDONE 2 MG TABLET PO SCH (21:04)
[2017-04-12] MEDS: MINERAL OIL/PETROLAT/WATER TOPICAL CREAM 113 GM JAR TP SCH (21:05)
[2017-04-13] MEDS: GABAPENTIN 300 MG CAPSULE (FP) PO SCH ×3 (06:19→21:07)
[2017-04-13] MEDS ORDERED: PT OWN MED DRAWER 7, Y5N ONE ×2 (08:34→23:13)
[2017-04-13] MEDS: ASPIRIN COATED 81 MG TABLET.EC PO SCH (09:25)
[2017-04-13] MEDS: BUDESONIDE/FORMETEROL FUMARATE 80/4.5 mcg INHALER IH SCH ×2 (09:25→21:08)
[2017-04-13] MEDS: FLUOCINONIDE 0.05% CREAM (15 GM TUBE) TP SCH ×2 (09:26→21:10)
[2017-04-13] MEDS: RANITIDINE HCL 150 MG TABLET (FP) PO SCH (09:26)
[2017-04-13] MEDS: PRENATAL VITAMINS W/ FOLIC ACID TABLET (FP) PO SCH (09:26)
[2017-04-13] MEDS: NICOTINE 21 MG/24 HOURS TOPICAL PATCH TD SCH (09:27)
[2017-04-13] MEDS: THIAMINE HCL 100 MG TABLET (FP) PO SCH (21:07)
[2017-04-13] MEDS: traZODone HCL 100 MG TABLET (FP) PO SCH (21:07)
[2017-04-13] MEDS: QUEtiapine FUMARATE 200 MG TABLET PO SCH (21:07)
[2017-04-13] MEDS: risperiDONE 2 MG TABLET PO SCH (21:07)
[2017-04-13] MEDS: diphenhydrAMINE HCL 25 MG CAPSULE (FP) PO SCH (21:07)
[2017-04-13] MEDS: MINERAL OIL/PETROLAT/WATER TOPICAL CREAM 113 GM JAR TP SCH (21:10)
[2017-04-14] MEDS: MENTHOL/PHENOL 1 EACH UD MM PRN ×3 (00:17→13:16)
[2017-04-14] MEDS: GABAPENTIN 300 MG CAPSULE (FP) PO SCH ×3 (06:20→21:10)
[2017-04-14] MEDS: guaiFENesin/D-METHORPHAN HB 10 ML UNIT-DOSE CUPS PO PRN ×3 (06:22→21:10)
[2017-04-14] MEDS ORDERED: PT OWN MED DRAWER 7, Y5N ONE ×3 (08:28→22:37)
[2017-04-14] MEDS: BUDESONIDE/FORMETEROL FUMARATE 80/4.5 mcg INHALER IH SCH ×2 (09:40→21:14)
[2017-04-14] MEDS: FLUOCINONIDE 0.05% CREAM (15 GM TUBE) TP SCH ×2 (09:41→21:14)
[2017-04-14] MEDS: NICOTINE 21 MG/24 HOURS TOPICAL PATCH TD SCH (09:41)
[2017-04-14] MEDS: PRENATAL VITAMINS W/ FOLIC ACID TABLET (FP) PO SCH (09:42)
[2017-04-14] MEDS: RANITIDINE HCL 150 MG TABLET (FP) PO SCH (09:42)
[2017-04-14] MEDS: ASPIRIN COATED 81 MG TABLET.EC PO SCH (09:42)
--- NOTE | 2017-04-14 11:39 | EKG ---
Test Reason : Blood Pressure : / mmHG Vent. Rate : 082 BPM Atrial Rate : 082 BPM P-R Int : 152 ms QRS Dur : 076 ms QT Int : 366 ms P-R-T Axes : 073 063 078 degrees QTc Int : 427 ms NORMAL SINUS RHYTHM NONSPECIFIC T WAVE ABNORMALITY ABNORMAL ECG WHEN COMPARED WITH ECG OF 30-MAR-2017 20:34, PREMATURE ATRIAL COMPLEXES ARE NO LONGER PRESENT Confirmed by FLORI VALDIVIA, JADE ([id number]) on 04/14/2017 11:38:39 AM Referred By: Confirmed By:JADE RUBY MD
[2017-04-14] MEDS: QUEtiapine FUMARATE 200 MG TABLET PO SCH (21:10)
[2017-04-14] MEDS: diphenhydrAMINE HCL 25 MG CAPSULE (FP) PO SCH (21:10)
[2017-04-14] MEDS: traZODone HCL 100 MG TABLET (FP) PO SCH (21:10)
[2017-04-14] MEDS: THIAMINE HCL 100 MG TABLET (FP) PO SCH (21:13)
[2017-04-14] MEDS: risperiDONE 2 MG TABLET PO SCH (21:13)
[2017-04-14] MEDS: MINERAL OIL/PETROLAT/WATER TOPICAL CREAM 113 GM JAR TP SCH (21:15)
[2017-04-15] MEDS: GABAPENTIN 300 MG CAPSULE (FP) PO SCH ×3 (05:59→21:08)
[2017-04-15] MEDS: guaiFENesin/D-METHORPHAN HB 10 ML UNIT-DOSE CUPS PO PRN ×3 (06:01→21:10)
[2017-04-15] MEDS: MENTHOL/PHENOL 1 EACH UD MM PRN (06:02)
[2017-04-15] MEDS ORDERED: PT OWN MED DRAWER 7, Y5N ONE ×2 (08:37→19:09)
[2017-04-15] MEDS: FLUOCINONIDE 0.05% CREAM (15 GM TUBE) TP SCH ×2 (09:48→21:08)
[2017-04-15] MEDS: ASPIRIN COATED 81 MG TABLET.EC PO SCH (09:48)
[2017-04-15] MEDS: RANITIDINE HCL 150 MG TABLET (FP) PO SCH (09:48)
[2017-04-15] MEDS: PRENATAL VITAMINS W/ FOLIC ACID TABLET (FP) PO SCH (09:48)
[2017-04-15] MEDS: BUDESONIDE/FORMETEROL FUMARATE 80/4.5 mcg INHALER IH SCH ×2 (09:49→21:06)
[2017-04-15] MEDS: NICOTINE 21 MG/24 HOURS TOPICAL PATCH TD SCH (09:49)
[2017-04-15] MEDS: diphenhydrAMINE HCL 25 MG CAPSULE (FP) PO SCH (21:06)
[2017-04-15] MEDS: traZODone HCL 100 MG TABLET (FP) PO SCH (21:07)
[2017-04-15] MEDS: risperiDONE 2 MG TABLET PO SCH (21:08)
[2017-04-15] MEDS: MINERAL OIL/PETROLAT/WATER TOPICAL CREAM 113 GM JAR TP SCH (21:08)
[2017-04-15] MEDS: QUEtiapine FUMARATE 200 MG TABLET PO SCH (21:08)
[2017-04-15] MEDS: THIAMINE HCL 100 MG TABLET (FP) PO SCH (21:09)
[2017-04-16] MEDS: GABAPENTIN 300 MG CAPSULE (FP) PO SCH ×3 (06:39→21:02)
[2017-04-16] MEDS ORDERED: PT OWN MED DRAWER 7, Y5N ONE ×3 (07:52→23:18)
[2017-04-16] MEDS: FLUOCINONIDE 0.05% CREAM (15 GM TUBE) TP SCH ×2 (09:39→21:04)
[2017-04-16] MEDS: NICOTINE 21 MG/24 HOURS TOPICAL PATCH TD SCH (09:39)
[2017-04-16] MEDS: BUDESONIDE/FORMETEROL FUMARATE 80/4.5 mcg INHALER IH SCH ×2 (09:40→21:04)
[2017-04-16] MEDS: RANITIDINE HCL 150 MG TABLET (FP) PO SCH (09:40)
[2017-04-16] MEDS: PRENATAL VITAMINS W/ FOLIC ACID TABLET (FP) PO SCH (09:41)
[2017-04-16] MEDS: ASPIRIN COATED 81 MG TABLET.EC PO SCH (09:41)
[2017-04-16] MEDS: guaiFENesin/D-METHORPHAN HB 10 ML UNIT-DOSE CUPS PO PRN ×2 (13:38→21:03)
[2017-04-16] MEDS: THIAMINE HCL 100 MG TABLET (FP) PO SCH (21:02)
[2017-04-16] MEDS: QUEtiapine FUMARATE 200 MG TABLET PO SCH (21:02)
[2017-04-16] MEDS: diphenhydrAMINE HCL 25 MG CAPSULE (FP) PO SCH (21:02)
[2017-04-16] MEDS: risperiDONE 2 MG TABLET PO SCH (21:02)
[2017-04-16] MEDS: traZODone HCL 100 MG TABLET (FP) PO SCH (21:02)
[2017-04-16] MEDS: MINERAL OIL/PETROLAT/WATER TOPICAL CREAM 113 GM JAR TP SCH (21:04)
[2017-04-17] MEDS: GABAPENTIN 300 MG CAPSULE (FP) PO SCH ×3 (06:35→21:06)
[2017-04-17] MEDS ORDERED: PT OWN MED DRAWER 7, Y5N ONE ×5 (08:04→21:54)
[2017-04-17] MEDS: ASPIRIN COATED 81 MG TABLET.EC PO SCH (09:29)
[2017-04-17] MEDS: NICOTINE 21 MG/24 HOURS TOPICAL PATCH TD SCH (09:30)
[2017-04-17] MEDS: FLUOCINONIDE 0.05% CREAM (15 GM TUBE) TP SCH ×2 (09:30→21:07)
[2017-04-17] MEDS: PRENATAL VITAMINS W/ FOLIC ACID TABLET (FP) PO SCH (09:31)
[2017-04-17] MEDS: BUDESONIDE/FORMETEROL FUMARATE 80/4.5 mcg INHALER IH SCH ×2 (09:31→21:06)
[2017-04-17] MEDS: RANITIDINE HCL 150 MG TABLET (FP) PO SCH (09:31)
[2017-04-17] MEDS: traZODone HCL 100 MG TABLET (FP) PO SCH (21:06)
[2017-04-17] MEDS: risperiDONE 2 MG TABLET PO SCH (21:06)
[2017-04-17] MEDS: QUEtiapine FUMARATE 200 MG TABLET PO SCH (21:06)
[2017-04-17] MEDS: MINERAL OIL/PETROLAT/WATER TOPICAL CREAM 113 GM JAR TP SCH (21:06)
[2017-04-17] MEDS: THIAMINE HCL 100 MG TABLET (FP) PO SCH (21:06)
[2017-04-17] MEDS: diphenhydrAMINE HCL 25 MG CAPSULE (FP) PO SCH (21:07)
[2017-04-18] MEDS: GABAPENTIN 300 MG CAPSULE (FP) PO SCH ×3 (06:36→21:12)
[2017-04-18] MEDS ORDERED: PT OWN MED DRAWER 7, Y5N ONE ×4 (08:12→23:36)
[2017-04-18] MEDS: RANITIDINE HCL 150 MG TABLET (FP) PO SCH (09:56)
[2017-04-18] MEDS: BUDESONIDE/FORMETEROL FUMARATE 80/4.5 mcg INHALER IH SCH ×2 (09:56→21:14)
[2017-04-18] MEDS: FLUOCINONIDE 0.05% CREAM (15 GM TUBE) TP SCH ×2 (09:56→21:14)
[2017-04-18] MEDS: PRENATAL VITAMINS W/ FOLIC ACID TABLET (FP) PO SCH (09:56)
[2017-04-18] MEDS: ASPIRIN COATED 81 MG TABLET.EC PO SCH (09:56)
[2017-04-18] MEDS: NICOTINE 21 MG/24 HOURS TOPICAL PATCH TD SCH (09:56)
[2017-04-18] MEDS: traZODone HCL 100 MG TABLET (FP) PO SCH (21:12)
[2017-04-18] MEDS: diphenhydrAMINE HCL 25 MG CAPSULE (FP) PO SCH (21:12)
[2017-04-18] MEDS: QUEtiapine FUMARATE 200 MG TABLET PO SCH (21:12)
[2017-04-18] MEDS: risperiDONE 2 MG TABLET PO SCH (21:12)
[2017-04-18] MEDS: THIAMINE HCL 100 MG TABLET (FP) PO SCH (21:12)
[2017-04-18] MEDS: MINERAL OIL/PETROLAT/WATER TOPICAL CREAM 113 GM JAR TP SCH (21:14)
[2017-04-19] MEDS: GABAPENTIN 300 MG CAPSULE (FP) PO SCH ×3 (06:42→21:08)
[2017-04-19] MEDS ORDERED: PT OWN MED DRAWER 7, Y5N ONE ×7 (08:32→21:06)
[2017-04-19] MEDS: ASPIRIN COATED 81 MG TABLET.EC PO SCH (10:14)
[2017-04-19] MEDS: NICOTINE 21 MG/24 HOURS TOPICAL PATCH TD SCH (10:15)
[2017-04-19] MEDS: PRENATAL VITAMINS W/ FOLIC ACID TABLET (FP) PO SCH (10:15)
[2017-04-19] MEDS: FLUOCINONIDE 0.05% CREAM (15 GM TUBE) TP SCH ×2 (10:15→21:10)
[2017-04-19] MEDS: BUDESONIDE/FORMETEROL FUMARATE 80/4.5 mcg INHALER IH SCH ×2 (10:15→21:10)
[2017-04-19] MEDS: RANITIDINE HCL 150 MG TABLET (FP) PO SCH (10:15)
[2017-04-19] MEDS: ACETAMINOPHEN 325 MG TABLET (FP) PO PRN (10:16)
[2017-04-19] MEDS: THIAMINE HCL 100 MG TABLET (FP) PO SCH (21:08)
[2017-04-19] MEDS: traZODone HCL 100 MG TABLET (FP) PO SCH (21:08)
[2017-04-19] MEDS: QUEtiapine FUMARATE 200 MG TABLET PO SCH (21:08)
[2017-04-19] MEDS: diphenhydrAMINE HCL 25 MG CAPSULE (FP) PO SCH (21:08)
[2017-04-19] MEDS: risperiDONE 2 MG TABLET PO SCH (21:08)
[2017-04-19] MEDS: MINERAL OIL/PETROLAT/WATER TOPICAL CREAM 113 GM JAR TP SCH (21:10)
[2017-04-20] MEDS: GABAPENTIN 300 MG CAPSULE (FP) PO SCH (06:36)
[2017-04-20] MEDS: ACETAMINOPHEN 325 MG TABLET (FP) PO PRN (06:37)
[2017-04-20 06:51] VITALS: BP 112/75; PULSE 87; TEMP 97.8
--- NOTE | 2017-04-20 09:09 | PN ---
Psychiatric Progress Note Vital Signs: Vital Signs Period Temp Pulse Resp BP Sys/Kimble Pulse Ox Last 24 Hr 97.8 F 87 18-18 112/75 Date of Session: 04/20/17 Chief Complaint:: Discharge visit HPI: Patient addressed Alcochol and Cocaine dependence comorbid with Schizophrenia. ROS: Significant for COPD,HIV+. Current Medications: Active Medications Generic Name Dose Route Start Last Admin Trade Name Freq PRN Reason Stop Dose Admin Acetaminophen 650 mg 03/30/17 18:38 04/20/17 06:37 Tylenol - PO 650 mg Q4H PRN Administration PAIN Al Hydroxide/Mg Hydroxide 30 ml 03/30/17 18:38 04/01/17 09:10 Mylanta Oral Suspension - PO 30 ml Q6H PRN Administration DYSPEPSIA Albuterol Sulfate 2 puff 03/30/17 18:41 04/12/17 21:02 Ventolin Hfa Inhaler - IH 2 inhaler Q4H PRN Administration SHORT OF BREATH/WHEEZING Aspirin 81 mg 04/13/17 10:00 04/19/17 10:14 Ecotrin - PO 81 mg DAILY CAITY Administration Budesonide/Formoterol Fumarate 2 puff 03/30/17 22:00 04/19/17 21:10 Symbicort 80/4.5mcg - IH 2 puff BID CAITY Administration Colloidal Oatmeal 1 applic 03/30/17 18:42 04/08/17 22:10 Aveeno Soap - TP 1 applic DAILY PRN Administration HYGEINE Diphenhydramine HCl 50 mg 04/08/17 22:00 04/19/17 21:08 Benadryl - PO 50 mg HS CAITY Administration Eucalyptus/Menthol/Phenol/Sorbitol 1 each 03/30/17 18:38 04/15/17 06:02 Cepastat Lozenge - MM 1 each Q4H PRN Administration SORE THROAT Fluocinonide 1 applic 04/07/17 14:00 04/19/17 21:10 Lidex 0.05% Cream - TP Not Given BID CAITY Gabapentin 600 mg 03/30/17 22:00 04/20/17 06:36 Neurontin - PO 600 mg TID CAITY Administration Guaifenesin 10 ml 03/30/17 18:38 04/16/17 21:03 Robitussin Dm - PO 10 ml Q6H PRN Administration COUGH Hydroxyzine Pamoate 50 mg 03/30/17 18:38 04/07/17 22:53 Vistaril - PO 50 mg Q4H PRN Administration AGITATION Loperamide HCl 4 mg 03/30/17 18:38 Imodium - PO Q6H PRN DIARRHEA Magnesium Citrate 300 ml 03/30/17 18:38 Citroma - PO Q48H PRN CONSTIPATION Magnesium Hydroxide 30 ml 03/30/17 18:38 Milk Of Magnesia - PO DAILY PRN CONSTIPATION Multi-Ingredient Lotion 1 applic 03/30/17 22:00 04/19/17 21:10 Eucerin (Small Jar) - TP Not Given HS CAITY Nicotine 21 mg 03/31/17 10:00 04/19/17 10:15 Nicoderm Patch - TD Not Given DAILY CAITY Nicotine Polacrilex 4 mg 03/30/17 18:38 Nicorette Gum - BC Q2H PRN NICOTINE REPLACEMENT RX Non-Formulary Medication 1 each 03/30/17 22:00 04/19/17 21:08 Abacavir/Dolutegravir/Lamivudi [Triumeq Tablet] PO 1 each HS CAITY Administration Multivit/Folic Acid/Iron 1 tab 03/31/17 10:00 04/19/17 10:15 Vitamins ([facility]) - PO 1 tab DAILY CAITY Administration Pseudoephedrine/Triprolidine 1 combo 03/30/17 18:38 04/13/17 06:21 Actifed - PO 1 combo TID PRN Administration NASAL CONGESTION Quetiapine Fumarate 200 mg 03/31/17 22:00 04/19/17 21:08 Seroquel - PO 200 mg HS CAITY Administration Ranitidine HCl 300 mg 04/01/17 07:00 04/19/17 10:15 Zantac - PO 300 mg DAILY CAITY Administration Risperidone 2 mg 03/31/17 22:00 04/19/17 21:08 Risperdal - PO 2 mg HS CAITY Administration Thiamine HCl 100 mg 03/30/17 22:00 04/19/17 21:08 Vitamin B1 - PO 100 mg HS CAITY Administration Trazodone HCl 200 mg 03/31/17 22:00 04/19/17 21:08 Desyrel - PO 200 mg HS CAITY Administration Current Side Effect: No Lab tests ordered: No Lab tests reviewed: Yes Provider note:: Patient completed this program today.She has met her treatment goals and will continue to address her issues on outpatient basis.She continues to find that current Trazodone 200 mg po hs,Risperidone 2 mg po hs,Seroquel 200 mg po hs help to reduce her mood instability,depression and anxiety.Scripts for 30 days provided. Supportive therapy provided focusing on relapse prevention. Patient is stable for discharge today. Total face to face time:: 30 Mental Status Exam - Mental Status Exam Alert and Oriented to: Time, Place, Person Cognitive Function: Grossly Intact Patient Appearance: Well Groomed Mood: Euthymic Affect: Mood Congruent Patient Behavior: Cooperative Speech Pattern: Clear Voice Loudness: Normal Thought Process: Goal Oriented Thought Disorder: Being Controlled Hallucinations: Denies Suicidal Ideation: Denies Homicidal Ideation: Denies Insight/Judgement: Fair Sleep: Fair Appetite: Good Muscle strength/Tone: Normal Gait/Station: Normal Psychiatric Treatment Plan - Problem List (1) Alcohol dependence Current Visit: Yes (2) Cocaine dependence Current Visit: Yes (3) Nicotine dependence Current Visit: Yes Qualifiers: Nicotine product type: cigarettes Substance use status: in withdrawal Qualified Code(s): F17.213 - Nicotine dependence, cigarettes, with withdrawal (4) Paranoid schizophrenia Current Visit: Yes (5) COPD (chronic obstructive pulmonary disease) Current Visit: Yes Qualifiers: COPD type: emphysema Emphysema type: other Qualified Code(s): J43.8 - Other emphysema (6) HIV (human immunodeficiency virus infection) Current Visit: Yes Comment: MARIO
== END 2017-04-20 08:44 | disposition home or self-care (01) | DRG 772 ==
LOC: YASAS 18:05 → Y3E 20:01
PROVIDERS: ADMIT Psychiatry & Neurology Psychiatry; ATTEND Psychiatry & Neurology Psychiatry
PROC: HZ42ZZZ Group Counseling for Substance Abuse Treatment, Cognitive-Behavioral (ICD-10-PCS; principal; 2017-03-30)
DX: F10.20 Alcohol dependence, uncomplicated (principal); F14.20 Cocaine dependence, uncomplicated; F17.213 Nicotine dependence, cigarettes, with withdrawal; F20.0 Paranoid schizophrenia; Z21 Asymptomatic human immunodeficiency virus [HIV] infection status; J45.909 Unspecified asthma, uncomplicated; Z87.42 Personal history of other diseases of the female genital tract; Z91.5 Personal history of self-harm
CPT/HCPCS: 36415; 80048; 80053; 81003; 81015; 82550; 84484; 85027; 86593; 86780; 93005; 93010

== ENCOUNTER 2017-10-09 11:22 | Inpatient (IN) | payer OTHER ==
--- NOTE | 2017-10-09 12:02 | PN ---
[facility] Progress Note Note: Patient transferred from and is on the following medications: Seroquel 100 mg daily & 200 mg HS, Risperdal 2 mg po HS and Trazadone 200 mg po HS which will be ordered
--- NOTE | 2017-10-09 12:07 | HP ---
CHERYL VALDIVIA Rehab Assess/Revision - Admission History Admitted to Rehab from: [facility] Date of Admission to Rehab: 10/09/17 - Findings Detox History & Physical reviewed: Yes Concur with findings: Yes Comments/Additional Findings: FOR REHAB PROTOCOL Inpatient Rehab Admission - Initial Determination Are CD services needed?: Yes Free of communicable disease: Yes Not in need of hospitalization: Yes - Rehab Admission Criteria Previous failed treatment: Yes Poor recovery environment: Yes Comorbidities: Yes Patient is meeting Inpatient Rehab admission criteria:: Yes
[2017-10-09] MEDS ORDERED: hydrOXYzine PAMOATE 25 MG CAPSULE (FP) PO PRN (12:08)
[2017-10-09] MEDS ORDERED: MAGNESIUM CITRATE 300 ML BOTTLE PO PRN (12:08)
[2017-10-09] MEDS ORDERED: MAGNESIUM HYDROX 2400MG/30ML ORAL SUSPENSION 30 ML CUP PO PRN (12:08)
[2017-10-09] MEDS ORDERED: MENTHOL/PHENOL 1 EACH UD MM PRN (12:08)
[2017-10-09] MEDS ORDERED: MAG HYDROX/AL HYDROX/SIMETH 30 ML UNIT-DOSE CUP PO PRN (12:08)
[2017-10-09] MEDS ORDERED: P-EPHED 60MG/TRIPROLIDI 2.5MG TABLET PO PRN (12:08)
[2017-10-09] MEDS ORDERED: guaiFENesin/D-METHORPHAN HB 10 ML UNIT-DOSE CUPS PO PRN (12:08)
[2017-10-09] MEDS ORDERED: LOPERAMIDE HCL 2 MG CAPSULE PO PRN (12:08)
[2017-10-09] MEDS ORDERED: PT OWN MED DRAWER 7, Y5N ONE ×2 (18:47→23:47)
[2017-10-09] MEDS ORDERED: ABACAVIR SULFATE 300 MG TABLET PO SCH (22:00)
[2017-10-09] MEDS ORDERED: DOLUTEGRAVIR SODIUM 50 MG TABLET PO SCH (22:00)
[2017-10-09] MEDS ORDERED: lamiVUDine 150 MG TABLET PO SCH (22:00)
[2017-10-09] MEDS: RANITIDINE HCL 150 MG TABLET (FP) PO SCH (22:05)
[2017-10-09] MEDS: risperiDONE 2 MG TABLET PO SCH (22:05)
[2017-10-09] MEDS: traZODone HCL 100 MG TABLET (FP) PO SCH (22:05)
[2017-10-09] MEDS: THIAMINE HCL 100 MG TABLET (FP) PO SCH (22:05)
[2017-10-09] MEDS: BUDESONIDE/FORMETEROL FUMARATE 80/4.5 mcg INHALER IH SCH (22:06)
[2017-10-09] MEDS: POTASSIUM CHLORIDE ORAL LIQUID 20 MEQ/15 ML PO SCH (23:44)
[2017-10-10] MEDS ORDERED: QUEtiapine FUMARATE 200 MG TABLET PO SCH (07:00)
[2017-10-10] MEDS ORDERED: PT OWN MED DRAWER 7, Y5N ONE ×3 (09:03→15:30)
[2017-10-10] MEDS ORDERED: predniSONE 20 MG TABLET (UD) PO ONE (10:00)
[2017-10-10] MEDS: BUDESONIDE/FORMETEROL FUMARATE 80/4.5 mcg INHALER IH SCH ×2 (10:56→21:51)
[2017-10-10] MEDS: RANITIDINE HCL 150 MG TABLET (FP) PO SCH ×2 (10:57→21:52)
[2017-10-10] MEDS: POTASSIUM CHLORIDE ORAL LIQUID 20 MEQ/15 ML PO SCH ×2 (10:57→21:52)
[2017-10-10] MEDS: HYDROCHLOROTHIAZIDE 25 MG TABLET (FP) PO SCH (10:57)
[2017-10-10] MEDS: QUEtiapine FUMARATE 100 MG TABLET (FP) PO SCH (10:57)
[2017-10-10] MEDS: PRENATAL VITAMINS W/ FOLIC ACID TABLET (FP) PO SCH (10:57)
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
[2017-10-10] MEDS ORDERED: COLLOIDAL OATMEAL 1 BAR EACH TP PRN (12:45)
--- NOTE | 2017-10-10 12:47 | PN ---
[facility] Progress Note (SOAP) Subjective: c/o rash develops after using crack cocaine now itchy withdry skin flaking Objective: 10/10/17 12:46 Vital Signs - 8 hr 10/10/17 10/10/17 07:20 09:21 Temperature 98 F Pulse Rate 96 H 80 Respiratory 18 18 Rate Blood Pressure 95/67 103/71 excoriations over both arms, flaking no infection noted. non tender no vesicles Assessment: 10/10/17 12:46 rash 2/2 cocaine use Plan: lotisone daiy to affected areas
[2017-10-10] MEDS: CLOTRIMAZOLE/BETAMET DIPROP TOPICAL CREAM 45 GM TUBE TP SCH ×2 (14:55→21:52)
[2017-10-10] MEDS: ALBUTEROL SO4 18 GM HFA INHALER IH PRN (16:12)
[2017-10-10] MEDS: THIAMINE HCL 100 MG TABLET (FP) PO SCH (21:51)
[2017-10-10] MEDS: ABACAVIR/DOLUTEGRAVIR/LAMIVUDI (TRIUMEQ) TABLET -NF PO SCH (21:51)
[2017-10-10] MEDS: traZODone HCL 100 MG TABLET (FP) PO SCH (21:52)
[2017-10-10] MEDS: risperiDONE 2 MG TABLET PO SCH (21:52)
[2017-10-10] MEDS: QUEtiapine FUMARATE 200 MG TABLET PO SCH (21:53)
[2017-10-10] MEDS ORDERED: ABACAVIR/DOLUTEGRAVIR/LAMIVUDI (TRIUMEQ) TABLET -NF PO SCH (22:00)
[2017-10-11] MEDS: ALBUTEROL SO4 18 GM HFA INHALER IH PRN (08:33)
[2017-10-11] MEDS ORDERED: predniSONE 10 MG TABLET (UD) PO ONE (10:00)
[2017-10-11] MEDS: CLOTRIMAZOLE/BETAMET DIPROP TOPICAL CREAM 45 GM TUBE TP SCH ×2 (10:46→22:21)
[2017-10-11] MEDS: HYDROCHLOROTHIAZIDE 25 MG TABLET (FP) PO SCH (10:46)
[2017-10-11] MEDS: POTASSIUM CHLORIDE ORAL LIQUID 20 MEQ/15 ML PO SCH ×2 (10:46→22:22)
[2017-10-11] MEDS: PRENATAL VITAMINS W/ FOLIC ACID TABLET (FP) PO SCH (10:47)
[2017-10-11] MEDS: QUEtiapine FUMARATE 100 MG TABLET (FP) PO SCH (10:47)
[2017-10-11] MEDS: RANITIDINE HCL 150 MG TABLET (FP) PO SCH ×2 (10:47→22:22)
[2017-10-11] MEDS: BUDESONIDE/FORMETEROL FUMARATE 80/4.5 mcg INHALER IH SCH ×2 (10:47→22:22)
[2017-10-11] MEDS: traZODone HCL 100 MG TABLET (FP) PO SCH (22:21)
[2017-10-11] MEDS: QUEtiapine FUMARATE 200 MG TABLET PO SCH (22:22)
[2017-10-11] MEDS: THIAMINE HCL 100 MG TABLET (FP) PO SCH (22:22)
[2017-10-11] MEDS: ABACAVIR/DOLUTEGRAVIR/LAMIVUDI (TRIUMEQ) TABLET -NF PO SCH (22:22)
[2017-10-11] MEDS: risperiDONE 2 MG TABLET PO SCH (22:22)
[2017-10-12] MEDS: IBUPROFEN 400 MG TABLET (FP) PO PRN (07:12)
[2017-10-12] MEDS: ACETAMINOPHEN 325 MG TABLET (FP) PO PRN (08:40)
[2017-10-12] MEDS ORDERED: PT OWN MED DRAWER 7, Y5N ONE (09:10)
[2017-10-12] MEDS ORDERED: predniSONE 20 MG TABLET (UD) PO ONE (10:00)
[2017-10-12] MEDS: POTASSIUM CHLORIDE ORAL LIQUID 20 MEQ/15 ML PO SCH ×2 (10:58→21:05)
[2017-10-12] MEDS: HYDROCHLOROTHIAZIDE 25 MG TABLET (FP) PO SCH (10:59)
[2017-10-12] MEDS: PRENATAL VITAMINS W/ FOLIC ACID TABLET (FP) PO SCH (10:59)
[2017-10-12] MEDS: RANITIDINE HCL 150 MG TABLET (FP) PO SCH ×2 (10:59→21:05)
[2017-10-12] MEDS: QUEtiapine FUMARATE 100 MG TABLET (FP) PO SCH (10:59)
[2017-10-12] MEDS: CLOTRIMAZOLE/BETAMET DIPROP TOPICAL CREAM 45 GM TUBE TP SCH ×2 (11:00→21:06)
[2017-10-12] MEDS: BUDESONIDE/FORMETEROL FUMARATE 80/4.5 mcg INHALER IH SCH ×2 (11:00→21:07)
[2017-10-12] MEDS ORDERED: SUMAtriptan SUCCINATE 25 MG TABLET PO ONE (14:13)
[2017-10-12] MEDS: traZODone HCL 100 MG TABLET (FP) PO SCH (21:05)
[2017-10-12] MEDS: risperiDONE 2 MG TABLET PO SCH (21:06)
[2017-10-12] MEDS: QUEtiapine FUMARATE 200 MG TABLET PO SCH (21:06)
[2017-10-12] MEDS: ABACAVIR/DOLUTEGRAVIR/LAMIVUDI (TRIUMEQ) TABLET -NF PO SCH (21:07)
[2017-10-12] MEDS: THIAMINE HCL 100 MG TABLET (FP) PO SCH (21:07)
[2017-10-13] MEDS: IBUPROFEN 400 MG TABLET (FP) PO PRN (06:15)
[2017-10-13] MEDS: ACETAMINOPHEN 325 MG TABLET (FP) PO PRN (08:00)
[2017-10-13] MEDS ORDERED: PT OWN MED DRAWER 7, Y5N ONE (08:48)
[2017-10-13] MEDS ORDERED: predniSONE 10 MG TABLET (UD) PO ONE (10:00)
[2017-10-13] MEDS: HYDROCHLOROTHIAZIDE 25 MG TABLET (FP) PO SCH ×2 (10:23→17:42)
[2017-10-13] MEDS: POTASSIUM CHLORIDE ORAL LIQUID 20 MEQ/15 ML PO SCH ×2 (10:25→21:58)
[2017-10-13] MEDS: QUEtiapine FUMARATE 100 MG TABLET (FP) PO SCH (10:25)
[2017-10-13] MEDS: PRENATAL VITAMINS W/ FOLIC ACID TABLET (FP) PO SCH (10:25)
[2017-10-13] MEDS: CLOTRIMAZOLE/BETAMET DIPROP TOPICAL CREAM 45 GM TUBE TP SCH ×2 (10:25→22:00)
[2017-10-13] MEDS: BUDESONIDE/FORMETEROL FUMARATE 80/4.5 mcg INHALER IH SCH ×2 (10:26→22:00)
[2017-10-13] MEDS: RANITIDINE HCL 150 MG TABLET (FP) PO SCH ×2 (10:28→21:59)
[2017-10-13] MEDS ORDERED: SUMAtriptan SUCCINATE 25 MG TABLET PO ONE (15:44)
[2017-10-13] MEDS ORDERED: ALBUTEROL SO4 2.5/IPRATROPIUM 0.5 INH SOL 3 ML VIAL.NEB. NEB PRN (15:47)
--- NOTE | 2017-10-13 15:47 | PN ---
S Progress Note (SOAP) Subjective: c/o migraines, relievevd bu imitriex taken yesterday, continued wheezing reproted Objective: 10/13/17 15:46 Vital Signs - 8 hr 10/13/17 10/13/17 10/13/17 09:49 10:39 13:29 Pulse Rate 87 82 92 H Blood Pressure 90/64 100/67 124/86 nad, CONRAD a and o x3, had it beore admission relieved by percocet Assessment: 10/13/17 15:46 migraines, asthma start eleavil at night cont neurontin as prescribed, imitrix x1 dose today, duoneb renew
[2017-10-13] MEDS: AMITRIPTYLINE HCL 25 MG TABLET (FP) PO SCH ×2 (17:41→21:58)
[2017-10-13] MEDS: QUEtiapine FUMARATE 200 MG TABLET PO SCH (21:58)
[2017-10-13] MEDS: THIAMINE HCL 100 MG TABLET (FP) PO SCH (21:58)
[2017-10-13] MEDS: traZODone HCL 100 MG TABLET (FP) PO SCH (21:58)
[2017-10-13] MEDS: risperiDONE 2 MG TABLET PO SCH (21:59)
[2017-10-13] MEDS: ABACAVIR/DOLUTEGRAVIR/LAMIVUDI (TRIUMEQ) TABLET -NF PO SCH (22:00)
[2017-10-14] MEDS: ACETAMINOPHEN 325 MG TABLET (FP) PO PRN (08:51)
[2017-10-14] MEDS ORDERED: predniSONE 5 MG TABLET (UD) PO ONE (10:00)
[2017-10-14] MEDS: POTASSIUM CHLORIDE ORAL LIQUID 20 MEQ/15 ML PO SCH (11:08)
[2017-10-14] MEDS: PRENATAL VITAMINS W/ FOLIC ACID TABLET (FP) PO SCH (11:08)
[2017-10-14] MEDS: RANITIDINE HCL 150 MG TABLET (FP) PO SCH ×2 (11:08→21:53)
[2017-10-14] MEDS: QUEtiapine FUMARATE 100 MG TABLET (FP) PO SCH (11:08)
[2017-10-14] MEDS: HYDROCHLOROTHIAZIDE 25 MG TABLET (FP) PO SCH (11:09)
[2017-10-14] MEDS: CLOTRIMAZOLE/BETAMET DIPROP TOPICAL CREAM 45 GM TUBE TP SCH ×2 (11:10→21:55)
[2017-10-14] MEDS: BUDESONIDE/FORMETEROL FUMARATE 80/4.5 mcg INHALER IH SCH ×2 (11:11→21:55)
[2017-10-14] MEDS ORDERED: PT OWN MED DRAWER 7, Y5N ONE (11:57)
--- NOTE | 2017-10-14 11:57 | PN ---
S Progress Note Note: Pt. is taking K+ 20meq bid since 10/07/17, K+ was 3.2 on admission. Vital Signs - 8 hr 10/14/17 10/14/17 07:50 09:56 Temperature 98.5 F Pulse Rate 98 H 116 H Respiratory 18 Rate Blood Pressure 113/75 122/81 Decrease K+ to daily & repeat labs
[2017-10-14] MEDS: AMITRIPTYLINE HCL 25 MG TABLET (FP) PO SCH (21:53)
[2017-10-14] MEDS: risperiDONE 2 MG TABLET PO SCH (21:53)
[2017-10-14] MEDS: THIAMINE HCL 100 MG TABLET (FP) PO SCH (21:53)
[2017-10-14] MEDS: QUEtiapine FUMARATE 200 MG TABLET PO SCH (21:53)
[2017-10-14] MEDS: traZODone HCL 100 MG TABLET (FP) PO SCH (21:53)
[2017-10-14] MEDS: ABACAVIR/DOLUTEGRAVIR/LAMIVUDI (TRIUMEQ) TABLET -NF PO SCH (21:55)
[2017-10-15] MEDS: ACETAMINOPHEN 325 MG TABLET (FP) PO PRN (09:24)
[2017-10-15] MEDS: PRENATAL VITAMINS W/ FOLIC ACID TABLET (FP) PO SCH (09:24)
[2017-10-15] MEDS: RANITIDINE HCL 150 MG TABLET (FP) PO SCH ×2 (09:24→21:46)
[2017-10-15] MEDS: QUEtiapine FUMARATE 100 MG TABLET (FP) PO SCH (09:24)
[2017-10-15] MEDS: BUDESONIDE/FORMETEROL FUMARATE 80/4.5 mcg INHALER IH SCH ×2 (09:25→21:46)
[2017-10-15] MEDS: HYDROCHLOROTHIAZIDE 25 MG TABLET (FP) PO SCH (09:25)
[2017-10-15] MEDS: CLOTRIMAZOLE/BETAMET DIPROP TOPICAL CREAM 45 GM TUBE TP SCH ×2 (09:25→21:47)
[2017-10-15] MEDS ORDERED: POTASSIUM CHLORIDE ORAL LIQUID 20 MEQ/15 ML PO SCH (10:00)
[2017-10-15 10:26] LABS: RDW 13.2 % (11.6-15.6)
[2017-10-15 10:29] LABS: MCH 32.9 pg (25.7-33.7); MEAN CELL VOLUME 96.9 fl (80-96); MEAN PLT VOLUME 10.4 fl (7.5-11.1); PLATELET COUNT 147 K/MM3 (134-434); WHITE BLOOD COUNT 14.9 K/mm3 (4.0-10.0)
[2017-10-15 10:45] LABS: ANION GAP 11 (8-16); CALCIUM 8.4 mg/dL (8.5-10.1); CO2 30 mmol/L (21-32); CREATININE 0.7 mg/dL (0.55-1.02); GLUCOSE,RANDOM 78 mg/dL (74-106)
--- NOTE | 2017-10-15 12:40 | PN ---
[facility] Progress Note Note: Labs done today reveals that pt. still has hypokalemia, we'll continue K+ 20meq bid Laboratory Tests 10/15/17 10/15/17 07:40 07:40 WBC 14.9 H D RBC 4.73 Hgb 15.6 H D Hct 45.8 H MCV 96.9 H MCH 32.9 MCHC 34.0 RDW 13.2 Plt Count 147 MPV 10.4 Sodium 136 Potassium 3.1 L Chloride 95 L D Carbon Dioxide 30 Anion Gap 11 BUN 15 D Creatinine 0.7 Random Glucose 78 Calcium 8.4 L D/C HCTZ Start norvasc
[2017-10-15] MEDS ORDERED: PT OWN MED DRAWER 7, Y5N ONE (20:52)
[2017-10-15] MEDS: traZODone HCL 100 MG TABLET (FP) PO SCH (21:45)
[2017-10-15] MEDS: QUEtiapine FUMARATE 200 MG TABLET PO SCH (21:45)
[2017-10-15] MEDS: risperiDONE 2 MG TABLET PO SCH (21:45)
[2017-10-15] MEDS: POTASSIUM CHLORIDE ORAL LIQUID 20 MEQ/15 ML PO SCH (21:46)
[2017-10-15] MEDS: THIAMINE HCL 100 MG TABLET (FP) PO SCH (21:46)
[2017-10-15] MEDS: ABACAVIR/DOLUTEGRAVIR/LAMIVUDI (TRIUMEQ) TABLET -NF PO SCH (21:46)
[2017-10-15] MEDS: AMITRIPTYLINE HCL 25 MG TABLET (FP) PO SCH (21:46)
[2017-10-16] MEDS: ACETAMINOPHEN 325 MG TABLET (FP) PO PRN (06:47)
[2017-10-16] MEDS: RANITIDINE HCL 150 MG TABLET (FP) PO SCH ×2 (09:07→21:13)
[2017-10-16] MEDS: QUEtiapine FUMARATE 100 MG TABLET (FP) PO SCH (09:07)
[2017-10-16] MEDS: POTASSIUM CHLORIDE ORAL LIQUID 20 MEQ/15 ML PO SCH ×2 (09:07→21:12)
[2017-10-16] MEDS: BUDESONIDE/FORMETEROL FUMARATE 80/4.5 mcg INHALER IH SCH ×2 (09:07→21:13)
[2017-10-16] MEDS: PRENATAL VITAMINS W/ FOLIC ACID TABLET (FP) PO SCH (09:07)
[2017-10-16] MEDS: amLODIPine BESYLATE 2.5 MG TABLET (FP) PO SCH (09:08)
[2017-10-16] MEDS: CLOTRIMAZOLE/BETAMET DIPROP TOPICAL CREAM 45 GM TUBE TP SCH ×2 (09:08→21:15)
[2017-10-16] MEDS: traZODone HCL 100 MG TABLET (FP) PO SCH (21:12)
[2017-10-16] MEDS: AMITRIPTYLINE HCL 25 MG TABLET (FP) PO SCH (21:13)
[2017-10-16] MEDS: risperiDONE 2 MG TABLET PO SCH (21:13)
[2017-10-16] MEDS: QUEtiapine FUMARATE 200 MG TABLET PO SCH (21:13)
[2017-10-16] MEDS: THIAMINE HCL 100 MG TABLET (FP) PO SCH (21:13)
[2017-10-16] MEDS: ABACAVIR/DOLUTEGRAVIR/LAMIVUDI (TRIUMEQ) TABLET -NF PO SCH (21:14)
[2017-10-17 07:09] VITALS: TEMP 98.9
[2017-10-17] MEDS: RANITIDINE HCL 150 MG TABLET (FP) PO SCH (10:40)
[2017-10-17] MEDS: QUEtiapine FUMARATE 100 MG TABLET (FP) PO SCH (10:40)
[2017-10-17] MEDS: CLOTRIMAZOLE/BETAMET DIPROP TOPICAL CREAM 45 GM TUBE TP SCH (10:40)
[2017-10-17] MEDS: PRENATAL VITAMINS W/ FOLIC ACID TABLET (FP) PO SCH (10:40)
[2017-10-17] MEDS: amLODIPine BESYLATE 2.5 MG TABLET (FP) PO SCH (10:40)
[2017-10-17] MEDS: POTASSIUM CHLORIDE ORAL LIQUID 20 MEQ/15 ML PO SCH (10:40)
[2017-10-17] MEDS: BUDESONIDE/FORMETEROL FUMARATE 80/4.5 mcg INHALER IH SCH (11:00)
[2017-10-17 11:04] VITALS: BP 110/71; PULSE 99
--- NOTE | 2017-10-17 14:09 | PN ---
Psychiatric Progress Note Vital Signs: Vital Signs Period Temp Pulse Resp BP Sys/Kimble Pulse Ox Last 24 Hr 98.9 F 98-99 18-18 110-114/71-72 Date of Session: 10/17/17 Chief Complaint:: Discharge visit HPI: Patient addressed Alcohol and Cocaine dependence comorbid with PTSD. ROS: Significant for HIV+,COPD,GERD,BA. Current Medications: Active Medications Generic Name Dose Route Start Last Admin Trade Name Freq PRN Reason Stop Dose Admin Abacavir/Dolutegravir/Lamivudine 1 each 10/10/17 22:00 10/16/17 21:14 Triumeq (Non-Formulary) PO 1 each HS CAITY Administration Acetaminophen 650 mg 10/09/17 12:08 10/16/17 06:47 Tylenol - PO 650 mg Q4H PRN Administration FEVER OR PAIN Al Hydroxide/Mg Hydroxide 30 ml 10/09/17 12:08 10/11/17 11:51 Mylanta Oral Suspension - PO 30 ml Q6H PRN Administration DYSPEPSIA Albuterol Sulfate 2 puff 10/09/17 12:24 10/11/17 08:33 Ventolin Hfa Inhaler - IH 2 puff Q4H PRN Administration SHORT OF BREATH/WHEEZING Albuterol/Ipratropium 1 amp 10/13/17 15:47 Duoneb - NEB Q4H PRN SHORTNESS OF BREATH Amitriptyline HCl 25 mg 10/13/17 15:45 10/16/17 21:13 Elavil - PO 25 mg HS CAITY Administration Amlodipine Besylate 2.5 mg 10/16/17 10:00 10/17/17 10:40 Norvasc - PO Not Given DAILY CAITY Budesonide/Formoterol Fumarate 1 puff 10/09/17 22:00 10/17/17 11:00 Symbicort 80/4.5mcg - IH 1 puff BID CAITY Administration Clotrimazole 1 applic 10/10/17 12:45 10/17/17 10:40 Lotrisone Cream (Large Tube) - TP Not Given BID CAITY Colloidal Oatmeal 1 applic 10/10/17 12:45 10/10/17 14:55 Aveeno Soap - TP 1 applic DAILY PRN Administration HYGEINE Eucalyptus/Menthol/Phenol/Sorbitol 1 each 10/09/17 12:08 Cepastat Lozenge - MM Q4H PRN SORE THROAT Guaifenesin 10 ml 10/09/17 12:08 Robitussin Dm - PO Q6H PRN COUGH Hydroxyzine Pamoate 25 mg 10/09/17 12:08 10/10/17 00:45 Vistaril - PO 25 mg Q4H PRN Administration AGITATION Ibuprofen 400 mg 10/09/17 12:08 10/13/17 06:15 Motrin - PO 400 mg Q6H PRN Administration PAIN Loperamide HCl 4 mg 10/09/17 12:08 Imodium - PO Q6H PRN DIARRHEA Magnesium Citrate 300 ml 10/09/17 12:08 Citroma - PO Q48H PRN CONSTIPATION Magnesium Hydroxide 30 ml 10/09/17 12:08 Milk Of Magnesia - PO DAILY PRN CONSTIPATION Potassium Chloride 20 meq 10/15/17 22:00 10/17/17 10:40 Potassium Chloride Oral Liquid PO 20 meq BID CAITY Administration Multivit/Folic Acid/Iron 1 tab 10/10/17 10:00 10/17/17 10:40 Vitamins (Sjr) - PO 1 tab DAILY CAITY Administration Pseudoephedrine/Triprolidine 1 combo 10/09/17 12:08 Actifed - PO TID PRN NASAL CONGESTION Quetiapine Fumarate 100 mg 10/10/17 10:00 10/17/17 10:40 Seroquel - PO 100 mg DAILY CAITY Administration Quetiapine Fumarate 200 mg 10/10/17 22:00 10/16/17 21:13 Seroquel - PO 200 mg HS CAITY Administration Ranitidine HCl 150 mg 10/09/17 22:00 10/17/17 10:40 Zantac - PO 150 mg BID CAITY Administration Risperidone 2 mg 10/09/17 22:00 10/16/17 21:13 Risperdal - PO 2 mg HS CAITY Administration Thiamine HCl 100 mg 10/09/17 22:00 10/16/17 21:13 Vitamin B1 - PO 100 mg HS CAITY Administration Trazodone HCl 200 mg 10/09/17 22:00 10/16/17 21:12 Desyrel - PO 200 mg HS CAITY Administration Current Side Effect: No Lab tests ordered: No Lab tests reviewed: Yes Provider note:: Patient deicided to continue her treatment on outpatient basis.She has met her treatment goals partially.Patient reports finding current medications help to cope with mood instability,anxiety,insomnia.Scripts for Seroquel 200 mg po hs and 25 mg po bid,Trazodone 200 mg po hs,Elavil 25 mg po hs ,Risperidone 2 mg po hs provided. Supportive therapy provided focusing on relapse prevntion . Patient is stable for discharge today. Total face to face time:: 30 Mental Status Exam - Mental Status Exam Alert and Oriented to: Time, Place, Person Cognitive Function: Grossly Intact Patient Appearance: Unkempt Mood: Anxious Affect: Mood Congruent, Labile Patient Behavior: Restless, Distractible Speech Pattern: Clear Voice Loudness: Normal Thought Process: Goal Oriented Thought Disorder: Not Present Hallucinations: Denies Suicidal Ideation: Denies Homicidal Ideation: Denies Insight/Judgement: Fair Sleep: Fair Appetite: Good Muscle strength/Tone: Normal Gait/Station: Normal Psychiatric Treatment Plan - Problem List (3) Cocaine dependence Qualifiers: Substance use status: uncomplicated Qualified Code(s): F14.20 - Cocaine dependence, uncomplicated (4) Nicotine dependence Qualifiers: Nicotine product type: cigarettes Substance use status: in withdrawal Qualified Code(s): F17.213 - Nicotine dependence, cigarettes, with withdrawal (5) HIV (human immunodeficiency virus infection) Comment: ON TRIUMEQ BUT HAS NOT BEEN TAKING IT DUE TO ILLICIT DRUG USE. (6) COPD (chronic obstructive pulmonary disease) Qualifiers: COPD type: emphysema Emphysema type: other Qualified Code(s): J43.8 - Other emphysema (7) GERD (gastroesophageal reflux disease) Qualifiers: Esophagitis presence: without esophagitis Qualified Code(s): K21.9 - Gastro -esophageal reflux disease without esophagitis (8) Asthma Qualifiers: Asthma severity: mild persistent Asthma complication type: with status asthmaticus
== END 2017-10-17 14:45 | disposition home or self-care (01) | DRG 772 ==
LOC: YASAS 11:22 → Y3E 11:24
PROVIDERS: ADMIT Psychiatry & Neurology Psychiatry; ATTEND Psychiatry & Neurology Psychiatry
PROC: HZ42ZZZ Group Counseling for Substance Abuse Treatment, Cognitive-Behavioral (ICD-10-PCS; principal; 2017-10-09)
DX: F10.20 Alcohol dependence, uncomplicated (principal); F14.20 Cocaine dependence, uncomplicated; F17.213 Nicotine dependence, cigarettes, with withdrawal; F20.0 Paranoid schizophrenia; F43.10 Post-traumatic stress disorder, unspecified; J43.8 Other emphysema; J45.22 Mild intermittent asthma with status asthmaticus; K21.9 Gastro-esophageal reflux disease without esophagitis
CPT/HCPCS: 36415; 80048; 85027

== ENCOUNTER 2019-03-12 12:07 | Inpatient (IN) | payer OTHER ==
[2019-03-12 14:15] VITALS: BMI 24.3
--- NOTE | 2019-03-12 15:21 | HP ---
CIWA Score Nausea/Vomitin Muscle Tremors: 2 Anxiety: 2 Agitation: 2 Paroxysmal Sweats: 1-Minimal Palms Moist Orientation: 0-Oriented Tacttile Disturbances: 1-Very Mild Itch/Numbness Auditory Disturbances: 1-Very Mild Visual Disturbances: 0-None Headache: 2-Mild CIWA-Ar Total Score: 13 - Admission Criteria OASAS Guidelines: Admission for Medically Managed Detox: Requires at least one of the followin. CIWA greater than 12 2. Seizures within the past 24 hours 3. Delirium tremens within the past 24 hours 4. Hallucinations within the past 24 hours 5. Acute intervention needed for co occurring medical disorder 6. Acute intervention needed for co occurring psychiatric disorder 7. Severe withdrawal that cannot be handled at a lower level of care (continued vomiting, continued diarrhea, abnormal vital signs) requiring intravenous medication and/or fluids 8. Admission ROS S - HPI Chief Complaint: i need help to stop drinking alcohol,cocaine and marijuana Allergies/Adverse Reactions: Allergies Allergy/AdvReac Type Severity Reaction Status Date / Time Fish Containing Products Allergy Severe Hives Verified 03/12/19 14:15 tomato Allergy Severe Hives Verified 03/12/19 14:15 No Known Drug Allergies Allergy Verified 03/12/19 14:15 History of Present Illness: this 63 years old female with alcohol,cocaine and marijuana dependence,seking detox,withdrawal symptom, has prvious admissions in detox before,last detox 07/25/18 to 07/28/18 hepatitis c not treated weight loss rash in both upper and lower extremities hiv since 2010 no significant period of sobriety bipolar disorder,depression plan to go to rehab after detox Exam Limitations: No Limitations - Ebola screening Have you traveled outside of the country in the last 21 days: No Have you had contact with anyone from an Ebola affected area: No - Review of Systems Constitutional: Loss of Appetite, Malaise, Night Sweats, Changes in sleep, Weakness, Unintentional Wgt. Loss EENT: reports: Nose Congestion Respiratory: reports: No Symptoms reported, Other (asthma) Cardiac: reports: No Symptoms Reported GI: reports: Nausea, Poor Appetite, Abdominal cramping : reports: No Symptoms Reported Musculoskeletal: reports: Back Pain, Muscle Pain Integumentary: reports: Dryness Neuro: reports: Tremors Endocrine: reports: No Symptoms Reported Hematology: reports: Anemia, Other (hiv) Psychiatric: reports: No Sypmtoms Reported, Judgement Intact, Mood/Affect Appropiate, Orientated x3, Depressed, other (bipolar disorder) Other Systems: Reviewed and Negative Patient History - Patient Medical History Hx Anemia: Yes (used to be on iron) Hx Asthma: Yes (on albutrol inhaler) Hx Chronic Obstructive Pulmonary Disease (COPD): Yes Hx Cancer: No Hx Cardiac Disorders: No Hx Congestive Heart Failure: No Hx Hypertension: No Hx Hypercholesterolemia: No Hx Pacemaker: No HX Cerebrovascular Accident: No Hx Seizures: No Hx Dementia: No Hx Diabetes: No Hx Gastrointestinal Disorders: No (Past hx GERD. Not on meds and w/o exacerbation) Hx Liver Disease: No Hx Genitourinary Disorders: No Hx Sexually Transmitted Disorders: No Hx Renal Disease (ESRD): No Hx Thyroid Disease: No Hx Human Immunodeficiency Virus (HIV): Yes (2010;ON TRIUMEQ-" I HAVE'NT BEEN TAKING IT".) Hx Hepatitis C: Yes (NOT YET TREATED) Hx Depression: Yes Hx Suicide Attempt: Yes (cutter at age 41 years) Hx Bipolar Disorder: Yes Hx Schizophrenia: Yes Other Medical History: no suicidal,no homicidal,gingivitis on amoxicillin - Patient Surgical History Past Surgical History: Yes Hx Neurologic Surgery: No Hx Cataract Extraction: No Hx Cardiac Surgery: No Hx Lung Surgery: No Hx Breast Surgery: No Hx Breast Biopsy: No Hx Abdominal Surgery: No Hx Appendectomy: No Hx Cholecystectomy: No Hx Genitourinary Surgery: No Hx Section: Yes (x3 last 1976) Hx Orthopedic Surgery: No Hx Hysterectomy: No Anesthesia Reaction: No - PPD History Previous Implant?: Yes Documented Results: Negative w/proof Date: 07/27/18 Results: 0mm PPD to be Administered?: No - Reproductive History Patient is a Female of Child Bearing Age (11 -55 yrs old): No Patient : No - Smoking Cessation Smoking history: Current every day smoker Have you smoked in the past 12 months: Yes Aproximately how many cigarettes per day: 5 Cigars Per Day: 0 Hx Chewing Tobacco Use: No Initiated information on smoking cessation: Yes 'Breaking Loose' booklet given: 03/12/19 - Substance & Tx. History Hx Alcohol Use: Yes Hx Substance Use: Yes Substance Use Type: Alcohol, Cocaine Hx Substance Use Treatment: Yes ([facility] 07/25/18 to 08/31/18) - Substances abused Alcohol Substance route: Oral Frequency: Daily Amount used: 1 quart liquor, 3 cans beer ( 40 oz each) Age of first use: 14 Date of last use: 03/03/19 Crack Substance route: Smoking Frequency: Daily Amount used: $700 Age of first use: 46 Date of last use: 03/11/19 Marijuana/Hashish Substance route: Smoking Frequency: Daily Amount used: 50$ Age of first use: 41 Date of last use: 03/11/19 Family Disease History - Family Disease History Family Disease History: Diabetes: Father (alcohol,), CA: Mother (of bone ) Admission Physical Exam S - Vital Signs Vital Signs: Vital Signs - 24 hr 03/12/19 14:06 Temperature 98.1 F Pulse Rate 78 Respiratory 18 Rate Blood Pressure 166/67 - Physical General Appearance: Yes: Moderate Distress, Tremorous, Irritable, Sweating, Anxious HEENTM: Yes: Normal ENT Inspection, [place], Pharynx Normal, Other (poor dental hygiene gingivitis) Respiratory: Yes: Lungs Clear, Normal Breath Sounds, No Respiratory Distress, Other (asthma) Neck: Yes: Supple, Trachea in good position Breast: Yes: Breast Exam Deferred Cardiology: Yes: Within Normal Limits, Regular Rhythm, Regular Rate, S1, S2 Abdominal: Yes: Within Normal Limits, Normal Bowel Sounds, Non Tender, Soft Genitourinary: Yes: Within Normal Limits Back: Yes: Muscle Spasm Musculoskeletal: Yes: Back pain, Muscle Pain Extremities: Yes: Tremors Neurological: Yes: 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-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 NML intact, Fully Oriented, Alert, Motor Strength 5/5 Integumentary: Yes: Dry, Rash Lymphatic: Yes: Within Normal Limits - Diagnostic (1) Alcohol dependence with uncomplicated withdrawal Current Visit: No Status: Chronic (2) Asthma Current Visit: No Status: Chronic Qualifiers: Asthma severity: unspecified severity Asthma persistence: unspecified Asthma complication type: uncomplicated Qualified Code(s): J45.909 - Unspecified asthma, uncomplicated (3) COPD (chronic obstructive pulmonary disease) Current Visit: No Status: Chronic Qualifiers: COPD type: emphysema Emphysema type: other Qualified Code(s): J43.8 - Other emphysema (4) Cannabis dependence Current Visit: No Status: Chronic (5) Cocaine dependence Current Visit: No Status: Chronic Qualifiers: Substance use status: uncomplicated Qualified Code(s): F14.20 - Cocaine dependence, uncomplicated (6) HIV (human immunodeficiency virus infection) Current Visit: Yes Status: Acute (7) Gingivitis Current Visit: Yes Status: Acute (8) Dehydration Current Visit: Yes Status: Acute (9) Anemia Current Visit: Yes Status: Acute (10) Nicotine dependence Current Visit: No Status: Acute Qualifiers: Nicotine product type: cigarettes Substance use status: in withdrawal Qualified Code(s): F17.213 - Nicotine dependence, cigarettes, with withdrawal (11) History of anemia Current Visit: Yes Status: Acute Cleared for Admission S - Detox or Rehab [facility] Level of Care: Medically Managed Detox Regimen/Protocol: Librium Breathalyzer - Breathalyzer Breathalyzer: 0 POC Urine test - Test device test lot number: [id number] Expiration date: 07/28/20 - Control test control: Yes - Result Urine Test Results: Negative - NO line present Urine Drug Screen - Test Device Lot number: [id number] Expiration date: 10/27/20 - Control Is test valid?: Yes - Results Drug screen NEGATIVE: No Urine drug screen results: [place]-Marijuana, [place]-Cocaine Inpatient Rehab Admission - Rehab Decision to Admit Inpatient rehab admission?: No
[2019-03-12] MEDS ORDERED: MAG HYDROX/AL HYDROX/SIMETH 30 ML UNIT-DOSE CUP PO PRN (15:46)
[2019-03-12] MEDS ORDERED: MENTHOL/PHENOL 1 EACH UD MM PRN (15:46)
[2019-03-12] MEDS ORDERED: ACETAMINOPHEN 325 MG TABLET (FP) PO PRN ×2 (15:46)
[2019-03-12] MEDS ORDERED: MAGNESIUM CITRATE 300 ML BOTTLE PO PRN (15:46)
[2019-03-12] MEDS ORDERED: BISMUTH SUBSALICYLATE 524 MG/30 ML UD PO PRN (15:46)
[2019-03-12] MEDS ORDERED: METHOCARBAMOL 500 MG TABLET PO PRN (15:46)
[2019-03-12] MEDS ORDERED: IBUPROFEN 400 MG TABLET (FP) PO PRN (15:46)
[2019-03-12] MEDS ORDERED: MAGNESIUM HYDROX 2400MG/30ML ORAL SUSPENSION 30 ML CUP PO PRN (15:46)
[2019-03-12] MEDS ORDERED: ALBUTEROL SO4 8 GM HFA INHALER IH PRN (15:49)
[2019-03-12 16:48] LABS: HEMATOCRIT 40.8 % (32.4-45.2); HEMOGLOBIN 13.8 GM/dL (10.7-15.3); MCH 33.4 pg (25.7-33.7); MCHC 33.9 g/dl (32.0-36.0); MEAN CELL VOLUME 98.5 fl (80-96); MEAN PLT VOLUME 9.5 fl (7.5-11.1); PLATELET COUNT 143 K/MM3 (134-434); RBC 4.14 M/mm3 (3.60-5.2); RDW 13.2 % (11.6-15.6)
[2019-03-12] MEDS: chlordiazePOXIDE HCL 10 MG CAPSULE PO PRN (16:55)
[2019-03-12 16:58] LABS: ALBUMIN 3.6 g/dl (3.4-5.0); ALK PHOS 94 U/L (45-117); ANION GAP 3 MMOL/L (8-16); BILIRUBIN,TOTAL 0.3 mg/dL (0.2-1); BLOOD UREA NITROGEN 12 mg/dL (7-18); CALCIUM 8.6 mg/dL (8.5-10.1); CHLORIDE 109 mmol/L (98-107); CO2 30 mmol/L (21-32); CREATININE 0.6 mg/dL (0.55-1.3); GLUCOSE,RANDOM 86 mg/dL (74-106); POTASSIUM 3.9 mmol/L (3.5-5.1); SGOT/AST 79 U/L (15-37); SGPT/ALT 85 U/L (13-61); SODIUM 142 mmol/L (136-145)
[2019-03-12] MEDS: BUDESONIDE/FORMETEROL FUMARATE 80/4.5 mcg INHALER IH SCH (22:07)
[2019-03-12] MEDS: THIAMINE HCL 100 MG TABLET (FP) PO SCH (22:08)
[2019-03-12] MEDS: chlordiazePOXIDE HCL 25 MG CAPSULE PO SCH (22:08)
[2019-03-12] MEDS: AMOXICILLIN 875 MG TABLET PO SCH (22:08)
[2019-03-12] MEDS: MELATONIN 5 MG TABLETS PO PRN (22:08)
[2019-03-12 23:14] LABS: PH,URINE 6.5 (5.0-8.0); URINE APPEARANCE CLOUDY; URINE BILIRUBIN 1+ (NEGATIVE); URINE COLOR DK YELLOW; URINE GLUCOSE (UA) NEGATIVE (NEGATIVE); URINE KETONE NEGATIVE (NEGATIVE); URINE LEUK ESTERASE NEGATIVE (NEGATIVE); URINE NITRITE NEGATIVE (NEGATIVE); URINE PROTEIN NEGATIVE (NEGATIVE)
[2019-03-13] MEDS: chlordiazePOXIDE HCL 25 MG CAPSULE PO SCH ×2 (05:20→12:25)
--- NOTE | 2019-03-13 10:00 | PN ---
S CIWA - CIWA Score Nausea/Vomitin-No Nausea/No Vomiting Muscle Tremors: 3 Anxiety: 3 Agitation: 3 Paroxysmal Sweats: 3 Orientation: 0-Oriented Tacttile Disturbances: 0-None Auditory Disturbances: 0-None Visual Disturbances: 0-None Headache: 0-None Present CIWA-Ar Total Score: 12 [facility] Progress Note (SOAP) Subjective: sweats shakes body aches interrupted sleep dry skin Objective: 03/13/19 09:59 Vital Signs Temperature 97.9 F 03/13/19 09:16 Pulse Rate 72 03/13/19 09:16 Respiratory Rate 18 03/13/19 09:16 Blood Pressure 143/76 03/13/19 09:16 O2 Sat by Pulse Oximetry (%) Laboratory Tests 03/12/19 03/12/19 03/12/19 15:15 15:15 17:00 WBC 5.0 RBC 4.14 Hgb 13.8 Hct 40.8 MCV 98.5 H MCH 33.4 MCHC 33.9 RDW 13.2 Plt Count 143 MPV 9.5 Sodium 142 Potassium 3.9 Chloride 109 H Carbon Dioxide 30 Anion Gap 3 L BUN 12 Creatinine 0.6 Creat Clearance w eGFR 101.30 Random Glucose 86 Calcium 8.6 Total Bilirubin 0.3 AST 79 H ALT 85 H Alkaline Phosphatase 94 Total Protein 8.0 Albumin 3.6 Urine Color Dk yellow Urine Appearance Cloudy Urine pH 6.5 Ur Specific [place] 1.027 Urine Protein Negative Urine Glucose (UA) Negative Urine Ketones Negative Urine Blood Negative Urine Nitrite Negative Urine Bilirubin 1+ H Urine Urobilinogen 2.0 H Ur Leukocyte Esterase Negative aaox3 ambulating no acute distress labs noted Assessment: 03/13/19 09:59 withdrawal sx Plan: continue detox increase fluids vitamin A&D ointment ordered
[2019-03-13] MEDS: AMOXICILLIN 875 MG TABLET PO SCH ×2 (10:12→21:16)
[2019-03-13] MEDS: NICOTINE 14 MG/24 HOURS TOPICAL PATCH TD SCH (10:12)
[2019-03-13] MEDS: BUDESONIDE/FORMETEROL FUMARATE 80/4.5 mcg INHALER IH SCH ×2 (10:12→21:15)
[2019-03-13] MEDS: PRENATAL VITAMINS W/ FOLIC ACID TABLET (FP) PO SCH (10:12)
[2019-03-13] MEDS: hydrOXYzine PAMOATE 25 MG CAPSULE (FP) PO PRN ×2 (10:36→19:59)
[2019-03-13 10:57] LABS: RPR REACTIVE 1:4 (NONREACTIVE)
[2019-03-13 10:58] LABS: TREPONEMA ANTIBODY PREVIOUSLY REACTIVE (NONREACTIVE)
--- NOTE | 2019-03-13 12:11 | PN ---
[facility] Progress Note Note: Laboratory Tests 03/12/19 03/12/19 03/12/19 15:15 15:15 15:15 WBC 5.0 RBC 4.14 Hgb 13.8 Hct 40.8 MCV 98.5 H MCH 33.4 MCHC 33.9 RDW 13.2 Plt Count 143 MPV 9.5 Sodium 142 Potassium 3.9 Chloride 109 H Carbon Dioxide 30 Anion Gap 3 L BUN 12 Creatinine 0.6 Creat Clearance w eGFR 101.30 Random Glucose 86 Calcium 8.6 Total Bilirubin 0.3 AST 79 H ALT 85 H Alkaline Phosphatase 94 Total Protein 8.0 Albumin 3.6 Urine Color Urine Appearance Urine pH Ur Specific [place] Urine Protein Urine Glucose (UA) Urine Ketones Urine Blood Urine Nitrite Urine Bilirubin Urine Urobilinogen Ur Leukocyte Esterase RPR Titer Reactive 1:4 H T.pallidum Ab (MHA) Previously reactive 03/12/19 17:00 WBC RBC Hgb Hct MCV MCH MCHC RDW Plt Count MPV Sodium Potassium Chloride Carbon Dioxide Anion Gap BUN Creatinine Creat Clearance w eGFR Random Glucose Calcium Total Bilirubin AST ALT Alkaline Phosphatase Total Protein Albumin Urine Color Dk yellow Urine Appearance Cloudy Urine pH 6.5 Ur Specific [place] 1.027 Urine Protein Negative Urine Glucose (UA) Negative Urine Ketones Negative Urine Blood Negative Urine Nitrite Negative Urine Bilirubin 1+ H Urine Urobilinogen 2.0 H Ur Leukocyte Esterase Negative RPR Titer T.pallidum Ab (MHA) RPR 1:4 previous reactive. pt states she received a one time injection many years ago for syphilis. Pt has agreed to get her first dose of Pen G Pepe 2,400,000 IM today and was also told she will need 2more injection within a 3week of each other. pt in agreement too.
[2019-03-13] MEDS ORDERED: PENICILLIN G BENZATHINE 2,400,000 UNIT/4 ML PFS IM ONE (12:15)
[2019-03-13] MEDS: VITAMINS A AND D TOPICAL OINTMENT 60 GM TUBE TP SCH ×2 (12:23→17:23)
[2019-03-13] MEDS: chlordiazePOXIDE HCL 10 MG CAPSULE PO PRN (17:22)
[2019-03-13] MEDS: chlordiazePOXIDE 5 MG CAPSULE PO SCH (21:15)
[2019-03-13] MEDS: MELATONIN 5 MG TABLETS PO PRN (21:16)
[2019-03-13] MEDS: THIAMINE HCL 100 MG TABLET (FP) PO SCH (21:16)
[2019-03-14] MEDS: chlordiazePOXIDE 5 MG CAPSULE PO SCH ×2 (06:26→14:13)
[2019-03-14] MEDS: VITAMINS A AND D TOPICAL OINTMENT 60 GM TUBE TP SCH ×5 (06:28→23:19)
[2019-03-14] MEDS: AMOXICILLIN 875 MG TABLET PO SCH ×2 (09:42→22:27)
[2019-03-14] MEDS: PRENATAL VITAMINS W/ FOLIC ACID TABLET (FP) PO SCH (09:42)
[2019-03-14] MEDS: BUDESONIDE/FORMETEROL FUMARATE 80/4.5 mcg INHALER IH SCH ×2 (09:42→22:29)
[2019-03-14] MEDS: NICOTINE 14 MG/24 HOURS TOPICAL PATCH TD SCH (09:43)
--- NOTE | 2019-03-14 10:32 | CONSULT ---
[facility] Psychiatric Consult - Data Date of interview: 03/14/19 Admission source: Self-referred Identifying data: Ms Mata is a 63 years old single Black female, mother of 3 children, unemployed receiving SSI, domociled living alone seeking detox treatment for alcohol, cocaine and cannabis Substance Abuse History: Reports history of alcohol, cocaine and marijuana use. Refer to addiction counselor's summary for further information Medical History: Significant for anemia, bronchia asthma, hepatitis C, GERD , HIV and history of x3. Smokes 5 cigarettes daily Psychiatric History: Reports being diagnosed with Schizophrenia years ago in [place]. Reports 2 previous psychiatric hospitalizations all in [place]. Reports seeing Dr Madrigal at [facility] and she is prescribed Trazadone 200 mg po HS , Seroquel 300 mg po HS and lexapro 10 mg po daily. Denies previous suicidal attempt. At present, denies experiencing psychotic, depressive symptoms, S/H ideations. However, reports sleeping poorly Physical/Sexual Abuse/Trauma History: Denies history of emotional, physical or sexual abuse as well as DV relationship Additional Comment: Denies criminal history Mental Status Exam - Mental Status Exam Alert and Oriented to: Time, Place, Person Mood: Hopeful, Euthymic Patient Behavior: Cooperative Speech Pattern: Clear Voice Loudness: Normal Thought Process: Intact, Goal Oriented Hallucinations: Denies Suicidal Ideation: Denies Homicidal Ideation: Denies Insight/Judgement: Poor Sleep: Poorly Appetite: Good Muscle strength/Tone: Normal Gait/Station: Normal Psychiatric Findings - Problem List ([place] 1, 2,3) (1) Paranoid schizophrenia Current Visit: No Status: Chronic (2) Substance-induced sleep disorder Current Visit: Yes Status: Acute (3) Alcohol dependence Current Visit: No Status: Acute (4) Cocaine dependence Current Visit: Yes Status: Acute (5) Cannabis dependence Current Visit: No Status: Acute (6) Nicotine dependence Current Visit: No Status: Chronic Qualifiers: Nicotine product type: cigarettes Substance use status: in withdrawal Qualified Code(s): F17.213 - Nicotine dependence, cigarettes, with withdrawal (7) HIV (human immunodeficiency virus infection) Current Visit: Yes Status: Chronic (8) History of anemia Current Visit: Yes Status: Chronic (9) Asthma Current Visit: No Status: Chronic Qualifiers: Asthma severity: unspecified severity Asthma persistence: unspecified Asthma complication type: uncomplicated Qualified Code(s): J45.909 - Unspecified asthma, uncomplicated (10) GERD (gastroesophageal reflux disease) Current Visit: No Status: Chronic Qualifiers: Esophagitis presence: without esophagitis Qualified Code(s): K21.9 - Gastro -esophageal reflux disease without esophagitis - Initial Treatment Plan Initial Treatment Plan: 1) Continue Seroquel 300 mg po HS and Lexapro 10 mg po daily. 2) Continue inpatient detoxification
[2019-03-14] MEDS: hydrOXYzine PAMOATE 25 MG CAPSULE (FP) PO PRN (11:03)
[2019-03-14] MEDS: ESCITALOPRAM OXALATE 10 MG TABLET (FP) PO SCH (11:05)
--- NOTE | 2019-03-14 12:07 | PN ---
[facility] CIWA - CIWA Score Nausea/Vomitin-No Nausea/No Vomiting Muscle Tremors: 3 Anxiety: 2 Agitation: 3 Paroxysmal Sweats: 2 Orientation: 0-Oriented Tacttile Disturbances: 0-None Auditory Disturbances: 0-None Visual Disturbances: 0-None Headache: 0-None Present CIWA-Ar Total Score: 10 S Progress Note (SOAP) Subjective: sweats agitation anxiety interrupted sleep Objective: 03/14/19 12:06 Vital Signs Temperature 98.1 F 03/14/19 09:39 Pulse Rate 60 03/14/19 09:39 Respiratory Rate 8 L 03/14/19 09:39 Blood Pressure 149/77 03/14/19 09:39 O2 Sat by Pulse Oximetry (%) Laboratory Tests 03/12/19 03/12/19 03/12/19 15:15 15:15 15:15 WBC 5.0 RBC 4.14 Hgb 13.8 Hct 40.8 MCV 98.5 H MCH 33.4 MCHC 33.9 RDW 13.2 Plt Count 143 MPV 9.5 Sodium 142 Potassium 3.9 Chloride 109 H Carbon Dioxide 30 Anion Gap 3 L BUN 12 Creatinine 0.6 Creat Clearance w eGFR 101.30 Random Glucose 86 Calcium 8.6 Total Bilirubin 0.3 AST 79 H ALT 85 H Alkaline Phosphatase 94 Total Protein 8.0 Albumin 3.6 Urine Color Urine Appearance Urine pH Ur Specific [place] Urine Protein Urine Glucose (UA) Urine Ketones Urine Blood Urine Nitrite Urine Bilirubin Urine Urobilinogen Ur Leukocyte Esterase RPR Titer Reactive 1:4 H T.pallidum Ab (MHA) Previously reactive 03/12/19 17:00 WBC RBC Hgb Hct MCV MCH MCHC RDW Plt Count MPV Sodium Potassium Chloride Carbon Dioxide Anion Gap BUN Creatinine Creat Clearance w eGFR Random Glucose Calcium Total Bilirubin AST ALT Alkaline Phosphatase Total Protein Albumin Urine Color Dk yellow Urine Appearance Cloudy Urine pH 6.5 Ur Specific [place] 1.027 Urine Protein Negative Urine Glucose (UA) Negative Urine Ketones Negative Urine Blood Negative Urine Nitrite Negative Urine Bilirubin 1+ H Urine Urobilinogen 2.0 H Ur Leukocyte Esterase Negative RPR Titer T.pallidum Ab (MHA) aaox3 ambulating no acute distress Assessment: 03/14/19 12:07 withdrawal sx Plan: continue detox increase fluids
[2019-03-14] MEDS: chlordiazePOXIDE HCL 10 MG CAPSULE PO PRN (17:30)
[2019-03-14] MEDS ORDERED: chlordiazePOXIDE HCL 10 MG CAPSULE PO PRN (21:00)
[2019-03-14] MEDS ORDERED: QUEtiapine FUMARATE 300 MG TABLET PO SCH (22:00)
[2019-03-14] MEDS: chlordiazePOXIDE HCL 10 MG CAPSULE PO SCH (22:29)
[2019-03-14] MEDS: THIAMINE HCL 100 MG TABLET (FP) PO SCH (22:29)
[2019-03-15] MEDS: chlordiazePOXIDE HCL 10 MG CAPSULE PO SCH (06:37)
[2019-03-15] MEDS: VITAMINS A AND D TOPICAL OINTMENT 60 GM TUBE TP SCH (06:38)
--- NOTE | 2019-03-15 09:17 | DS ---
[facility] Detox Discharge Summary Admission Date: 03/12/19 Discharge Date: 03/15/19 - History Present History: Alcohol Dependence, Cannabis Dependence, Cocaine Dependence - Physical Exam Results Vital Signs: Vital Signs Temperature 97.6 F 03/15/19 06:28 Pulse Rate 59 L 03/15/19 06:28 Respiratory Rate 16 03/15/19 06:28 Blood Pressure 126/65 03/15/19 06:28 O2 Sat by Pulse Oximetry (%) - Treatment Hospital Course: Detox Protocol Followed, Detoxed Safely, Responded well, Discharged Condition Good, Rehab Referral Accepted - Medication Discharge Medications: Ambulatory Orders Albuterol Sulfate Inhaler - [Ventolin HFA Inhaler -] 2 puff IH Q4H PRN #1 inhaler 07/28/18 Budesonide/Formeterol Fumarate [SYMBICORT 80/4.5mcg -] 1 puff IH BID #1 inhaler 07/28/18 Abacavir/Dolutegravir/Lamivudi [Triumeq Tablet] 1 each PO DAILY 03/12/19 Amoxicillin - [Amoxicillin 875mg Tablet -] 875 mg PO Q12H 03/12/19 Diclofenac Sodium [Pennsaid] 2 gm TP BID 03/12/19 Escitalopram Oxalate [Lexapro -] 10 mg PO DAILY 03/12/19 Oxiconazole Nitrate 30 gm TP BID 03/12/19 Quetiapine Fumarate [Seroquel -] 300 mg PO HS 03/12/19 traZODone HCL [Trazodone HCl] 200 mg PO HS 03/12/19 - Diagnosis (1) Cocaine dependence Current Visit: Yes Status: Chronic Qualifiers: Substance use status: uncomplicated Qualified Code(s): F14.20 - Cocaine dependence, uncomplicated (2) Dehydration Current Visit: Yes Status: Acute (3) Gingivitis Current Visit: Yes Status: Acute (4) Substance-induced sleep disorder Current Visit: Yes Status: Acute (5) HIV (human immunodeficiency virus infection) Current Visit: Yes Status: Chronic Qualifiers: HIV symptom status: unspecified Qualified Code(s): B20 - Human immunodeficiency virus [HIV] disease (6) Cannabis dependence Current Visit: Yes Status: Chronic (7) PTSD (post-traumatic stress disorder) Current Visit: No Status: Acute (8) Rash and nonspecific skin eruption Current Visit: No Status: Chronic (9) Alcohol dependence with uncomplicated withdrawal Current Visit: Yes Status: Chronic (10) Asthma Current Visit: Yes Status: Chronic Qualifiers: Asthma severity: unspecified severity Asthma persistence: unspecified Asthma complication type: uncomplicated Qualified Code(s): J45.909 - Unspecified asthma, uncomplicated (11) COPD (chronic obstructive pulmonary disease) Current Visit: Yes Status: Chronic Qualifiers: COPD type: emphysema Emphysema type: other Qualified Code(s): J43.8 - Other emphysema (12) GERD (gastroesophageal reflux disease) Current Visit: No Status: Chronic Qualifiers: Esophagitis presence: without esophagitis Qualified Code(s): K21.9 - Gastro -esophageal reflux disease without esophagitis (13) History of asthma Current Visit: No Status: Chronic (14) Nicotine dependence Current Visit: Yes Status: Chronic Qualifiers: Nicotine product type: cigarettes Substance use status: uncomplicated Qualified Code(s): F17.210 - Nicotine dependence, cigarettes, uncomplicated (15) Paranoid schizophrenia Current Visit: No Status: Chronic (16) Skin lesion Current Visit: No Status: Chronic (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)
--- NOTE | 2019-03-15 09:46 | PN ---
[facility] Progress Note Note: pt was asking about her HIV medication triumeq; pt remembered her dose and last time taken pt verbalized the pharmacy and telephone number as well. [employer] called pt pharmacy to confirm dose and last time pt picked up her meds, pharmacist confirmed pt last picked up 02/22/19 and has refills. will order her HIV.
[2019-03-15] MEDS ORDERED: ABACAVIR/DOLUTEGRAVIR/LAMIVUDI (TRIUMEQ) TABLET -NF PO SCH (10:00)
[2019-03-15] MEDS: AMOXICILLIN 875 MG TABLET PO SCH (10:45)
[2019-03-15] MEDS: ESCITALOPRAM OXALATE 10 MG TABLET (FP) PO SCH (10:46)
[2019-03-15] MEDS: PRENATAL VITAMINS W/ FOLIC ACID TABLET (FP) PO SCH (10:46)
[2019-03-15] MEDS: NICOTINE 14 MG/24 HOURS TOPICAL PATCH TD SCH (10:46)
[2019-03-15] MEDS: BUDESONIDE/FORMETEROL FUMARATE 80/4.5 mcg INHALER IH SCH (10:47)
[2019-03-15 10:53] VITALS: BP 127/80; PULSE 68; TEMP 98
== END 2019-03-15 13:19 | disposition other institution (70) | DRG 774 ==
LOC: YASAS 12:07 → Y6N 16:18
PROVIDERS: ADMIT Surgery; ATTEND Surgery
PROC: HZ2ZZZZ Detoxification Services for Substance Abuse Treatment (ICD-10-PCS; principal; 2019-03-12)
DX: F10.230 Alcohol dependence with withdrawal, uncomplicated (principal); F14.20 Cocaine dependence, uncomplicated; F12.20 Cannabis dependence, uncomplicated; F17.210 Nicotine dependence, cigarettes, uncomplicated; F19.282 Other psychoactive substance dependence with psychoactive substance-induced sleep disorder; F20.0 Paranoid schizophrenia; F43.10 Post-traumatic stress disorder, unspecified; Z21 Asymptomatic human immunodeficiency virus [HIV] infection status; J43.8 Other emphysema; J45.998 Other asthma; E86.0 Dehydration; K05.10 Chronic gingivitis, plaque induced; R21 Rash and other nonspecific skin eruption
CPT/HCPCS: 36415; 80053; 81003; 85027; 86593; 86780

== ENCOUNTER 2019-03-15 13:04 | Inpatient (IN) | payer OTHER ==
[2019-03-15] MEDS ORDERED: LOPERAMIDE HCL 2 MG CAPSULE PO PRN (15:33)
[2019-03-15] MEDS ORDERED: MAG HYDROX/AL HYDROX/SIMETH 30 ML UNIT-DOSE CUP PO PRN (15:33)
[2019-03-15] MEDS ORDERED: guaiFENesin 200 MG/10 ML 10 ML UNIT-DOSE CUPS PO PRN (15:33)
[2019-03-15] MEDS ORDERED: MENTHOL/PHENOL 1 EACH UD MM PRN (15:33)
[2019-03-15] MEDS ORDERED: NICOTINE POLACRILEX 2 MG GUM BUC PRN (15:33)
[2019-03-15] MEDS ORDERED: MAGNESIUM CITRATE 300 ML BOTTLE PO PRN (15:33)
[2019-03-15] MEDS ORDERED: P-EPHED 60MG/TRIPROLIDI 2.5MG TABLET PO PRN (15:33)
[2019-03-15] MEDS ORDERED: ACETAMINOPHEN 325 MG TABLET (FP) PO PRN (15:33)
[2019-03-15] MEDS ORDERED: MAGNESIUM HYDROX 2400MG/30ML ORAL SUSPENSION 30 ML CUP PO PRN (15:33)
[2019-03-15] MEDS ORDERED: IBUPROFEN 400 MG TABLET (FP) PO PRN (15:33)
[2019-03-15] MEDS ORDERED: ALBUTEROL SO4 8 GM HFA INHALER IH PRN (15:34)
--- NOTE | 2019-03-15 15:34 | HP ---
[facility] Rehab Assess/Revision - Admission History Admitted to Rehab from: [facility] Date of Admission to Rehab: 03/15/19 - Vital signs Vital Signs: Vital Signs Period Temp Pulse Resp BP Sys/Kimble Pulse Ox Last 24 Hr 97.2 F 70 18 127/79 - Findings Detox History & Physical reviewed: Yes Concur with findings: Yes Inpatient Rehab Admission - Rehab Decision to Admit Inpatient rehab admission?: Yes - Initial Determination Are CD services needed?: Yes Free of communicable disease: Yes Not in need of hospitalization: Yes - Rehab Admission Criteria Previous failed treatment: Yes Poor recovery environment: Yes Comorbidities: Yes Lacks judgement: Yes Patient is meeting Inpatient Rehab admission criteria:: Yes
[2019-03-15] MEDS: THIAMINE HCL 100 MG TABLET (FP) PO SCH (21:06)
[2019-03-15] MEDS: NON-FORMULARY MED PO SCH (21:07)
[2019-03-15] MEDS: BUDESONIDE/FORMETEROL FUMARATE 80/4.5 mcg INHALER IH SCH (21:07)
[2019-03-15] MEDS: MELATONIN 5 MG TABLETS PO PRN (21:07)
[2019-03-15] MEDS: QUEtiapine FUMARATE 300 MG TABLET PO SCH (21:08)
[2019-03-15] MEDS ORDERED: OXICONAZOLE NITRATE TP SCH (22:00)
[2019-03-16] MEDS ORDERED: PT OWN MED DRAWER 7, Y5N ONE ×3 (05:51→16:04)
[2019-03-16] MEDS: ABACAVIR/DOLUTEGRAVIR/LAMIVUDI (TRIUMEQ) TABLET -NF PO SCH (07:44)
--- NOTE | 2019-03-16 08:00 | CONSULT ---
[facility] Psychiatric Consult - Data Date of interview: 03/16/19 Admission source: 6N Identifying data: Ms Mata is a 63 years old single Black female, mother of 3 children, unemployed receiving SSI, domiciled living alone seeking detox treatment for alcohol, cocaine and cannabis Substance Abuse History: Reports history of alcohol, cocaine and marijuana use. Refer to addiction counselor's summary for further information Medical History: Significant for anemia, bronchial asthma, hepatitis C, GERD , HIV and history of x3. Smokes 5 cigarettes daily Psychiatric History: Reports being diagnosed with Schizophrenia years ago in [place]. Reports 2 previous psychiatric hospitalizations all in [place]. Reports seeing Dr Madrigal at [facility] on [address] & [address] [facility] in [place] and she is prescribed Trazadone 200 mg po HS, Seroquel 300 mg po HS and Lexapro 10 mg po daily. Denies previous suicidal attempt. At present, denies experiencing psychotic, depressive symptoms, S/H ideations. However, reports sleeping poorly Physical/Sexual Abuse/Trauma History: Denies history of emotional, physical or sexual abuse as well as DV relationship Additional Comment: Denies criminal history Mental Status Exam - Mental Status Exam Alert and Oriented to: Time, Place, Person Cognitive Function: Fair Patient Appearance: Well Groomed Mood: Hopeful, Euthymic Affect: Appropriate Patient Behavior: Cooperative Speech Pattern: Clear Voice Loudness: Normal Thought Process: Intact, Goal Oriented Thought Disorder: Not Present Hallucinations: Denies Suicidal Ideation: Denies Homicidal Ideation: Denies Insight/Judgement: Fair Sleep: Poorly Appetite: Good Muscle strength/Tone: Normal Gait/Station: Normal Psychiatric Findings - Problem List ([place] 1, 2,3) (1) Paranoid schizophrenia Current Visit: No Status: Chronic (2) Substance-induced sleep disorder Current Visit: No Status: Acute (3) Alcohol dependence with uncomplicated withdrawal Current Visit: No Status: Acute (4) Cocaine dependence Current Visit: No Status: Acute Qualifiers: Substance use status: uncomplicated Qualified Code(s): F14.20 - Cocaine dependence, uncomplicated (5) Cannabis dependence Current Visit: No Status: Acute (6) Nicotine dependence Current Visit: No Status: Chronic Qualifiers: Nicotine product type: cigarettes Substance use status: uncomplicated Qualified Code(s): F17.210 - Nicotine dependence, cigarettes, uncomplicated (7) Asthma Current Visit: No Status: Chronic Qualifiers: Asthma severity: unspecified severity Asthma persistence: unspecified Asthma complication type: uncomplicated Qualified Code(s): J45.909 - Unspecified asthma, uncomplicated (8) COPD (chronic obstructive pulmonary disease) Current Visit: No Status: Chronic Qualifiers: COPD type: emphysema Emphysema type: other Qualified Code(s): J43.8 - Other emphysema (9) GERD (gastroesophageal reflux disease) Current Visit: No Status: Chronic Qualifiers: Esophagitis presence: without esophagitis Qualified Code(s): K21.9 - Gastro -esophageal reflux disease without esophagitis (10) HIV (human immunodeficiency virus infection) Current Visit: No Status: Chronic Qualifiers: HIV symptom status: unspecified Qualified Code(s): B20 - Human immunodeficiency virus [HIV] disease - Initial Treatment Plan Initial Treatment Plan: 1) Continue Seroquel 300 mg po HS and Lexapro 10 mg po daily. 2) Resume Trazadone 200 mg po HS. 3) Continue inpatient rehabilitation
[2019-03-16] MEDS: PRENATAL VITAMINS W/ FOLIC ACID TABLET (FP) PO SCH (10:02)
[2019-03-16] MEDS: ESCITALOPRAM OXALATE 10 MG TABLET (FP) PO SCH (10:02)
[2019-03-16] MEDS: NON-FORMULARY MED PO SCH ×2 (10:03→23:17)
[2019-03-16] MEDS: BUDESONIDE/FORMETEROL FUMARATE 80/4.5 mcg INHALER IH SCH ×2 (10:03→21:40)
[2019-03-16] MEDS: NICOTINE 21 MG/24 HOURS TOPICAL PATCH TD SCH (10:03)
[2019-03-16] MEDS: QUEtiapine FUMARATE 300 MG TABLET PO SCH (21:33)
[2019-03-16] MEDS: traZODone HCL 100 MG TABLET (FP) PO SCH (21:38)
[2019-03-16] MEDS: THIAMINE HCL 100 MG TABLET (FP) PO SCH (23:18)
[2019-03-16] MEDS: DICLOFENAC SODIUM 2 GM TP SCH (23:18)
[2019-03-17] MEDS: ABACAVIR/DOLUTEGRAVIR/LAMIVUDI (TRIUMEQ) TABLET -NF PO SCH (07:58)
[2019-03-17] MEDS: DICLOFENAC SODIUM 2 GM TP SCH ×2 (09:13→21:02)
[2019-03-17] MEDS: NICOTINE 21 MG/24 HOURS TOPICAL PATCH TD SCH (09:13)
[2019-03-17] MEDS: ESCITALOPRAM OXALATE 10 MG TABLET (FP) PO SCH (09:13)
[2019-03-17] MEDS: PRENATAL VITAMINS W/ FOLIC ACID TABLET (FP) PO SCH (09:14)
[2019-03-17] MEDS: NON-FORMULARY MED PO SCH (09:14)
[2019-03-17] MEDS: BUDESONIDE/FORMETEROL FUMARATE 80/4.5 mcg INHALER IH SCH ×2 (09:14→21:03)
[2019-03-17] MEDS: VITAMINS A AND D TOPICAL OINTMENT 60 GM TUBE TP SCH ×3 (13:00→23:09)
[2019-03-17] MEDS: traZODone HCL 100 MG TABLET (FP) PO SCH (21:03)
[2019-03-17] MEDS: THIAMINE HCL 100 MG TABLET (FP) PO SCH (21:03)
[2019-03-17] MEDS: QUEtiapine FUMARATE 300 MG TABLET PO SCH (21:03)
[2019-03-17] MEDS: MELATONIN 5 MG TABLETS PO PRN (21:04)
[2019-03-18] MEDS ORDERED: PT OWN MED DRAWER 7, Y5N ONE ×4 (03:10→10:15)
[2019-03-18] MEDS: VITAMINS A AND D TOPICAL OINTMENT 60 GM TUBE TP SCH ×4 (06:30→23:02)
[2019-03-18] MEDS: ABACAVIR/DOLUTEGRAVIR/LAMIVUDI (TRIUMEQ) TABLET -NF PO SCH (07:40)
[2019-03-18] MEDS: BUDESONIDE/FORMETEROL FUMARATE 80/4.5 mcg INHALER IH SCH ×2 (10:09→21:39)
[2019-03-18] MEDS: PRENATAL VITAMINS W/ FOLIC ACID TABLET (FP) PO SCH (10:11)
[2019-03-18] MEDS: NICOTINE 21 MG/24 HOURS TOPICAL PATCH TD SCH (10:11)
[2019-03-18] MEDS: ESCITALOPRAM OXALATE 10 MG TABLET (FP) PO SCH (10:11)
[2019-03-18] MEDS: DICLOFENAC SODIUM 2 GM TP SCH ×2 (10:15→21:39)
[2019-03-18] MEDS: traZODone HCL 100 MG TABLET (FP) PO SCH (21:30)
[2019-03-18] MEDS: THIAMINE HCL 100 MG TABLET (FP) PO SCH (21:31)
[2019-03-18] MEDS: MELATONIN 5 MG TABLETS PO PRN (21:31)
[2019-03-18] MEDS: QUEtiapine FUMARATE 300 MG TABLET PO SCH (21:31)
[2019-03-18] MEDS: NON-FORMULARY MED PO SCH (21:39)
[2019-03-18] MEDS ORDERED: AMOXICILLIN 500 MG CAPSULE (FP) PO SCH (22:00)
[2019-03-19] MEDS ORDERED: PT OWN MED DRAWER 7, Y5N ONE ×7 (02:47→21:54)
[2019-03-19] MEDS: ABACAVIR/DOLUTEGRAVIR/LAMIVUDI (TRIUMEQ) TABLET -NF PO SCH (07:29)
[2019-03-19] MEDS: VITAMINS A AND D TOPICAL OINTMENT 60 GM TUBE TP SCH ×3 (07:29→17:11)
[2019-03-19] MEDS: PRENATAL VITAMINS W/ FOLIC ACID TABLET (FP) PO SCH (10:29)
[2019-03-19] MEDS: DICLOFENAC SODIUM 2 GM TP SCH ×2 (10:29→21:16)
[2019-03-19] MEDS: ESCITALOPRAM OXALATE 10 MG TABLET (FP) PO SCH (10:29)
[2019-03-19] MEDS: NICOTINE 21 MG/24 HOURS TOPICAL PATCH TD SCH (10:30)
[2019-03-19] MEDS: BUDESONIDE/FORMETEROL FUMARATE 80/4.5 mcg INHALER IH SCH ×2 (10:31→21:14)
[2019-03-19] MEDS: NON-FORMULARY MED PO SCH ×2 (10:31→21:18)
--- NOTE | 2019-03-19 11:45 | PN ---
[facility] Progress Note Note: C/O ITCHY RASH ON BOTH FOREARMS. Vital Signs 03/19/19 06:51 Temperature 98.0 F Pulse Rate 70 Respiratory 16 Rate Blood Pressure 120/82 EXAM:BOTH FOREARMS WITH OLD HEALING LESIONS A:CHRONIC SKIN RASH PLAN:HYDROCORTISONE OINTMENT1% APPLY BID DIRECTED.
[2019-03-19] MEDS: HYDROCORTISONE 1% TOPICAL OINT 30 GM TUBE TP SCH ×2 (13:49→21:16)
[2019-03-19] MEDS: QUEtiapine FUMARATE 300 MG TABLET PO SCH (21:14)
[2019-03-19] MEDS: THIAMINE HCL 100 MG TABLET (FP) PO SCH (21:14)
[2019-03-19] MEDS: hydrOXYzine PAMOATE 50 MG CAPSULE (FP) PO PRN (21:14)
[2019-03-19] MEDS: traZODone HCL 100 MG TABLET (FP) PO SCH (21:14)
[2019-03-20] MEDS: VITAMINS A AND D TOPICAL OINTMENT 60 GM TUBE TP SCH ×4 (00:30→19:38)
[2019-03-20] MEDS ORDERED: PT OWN MED DRAWER 7, Y5N ONE ×2 (06:01→07:24)
[2019-03-20] MEDS: ABACAVIR/DOLUTEGRAVIR/LAMIVUDI (TRIUMEQ) TABLET -NF PO SCH (07:23)
[2019-03-20] MEDS: BUDESONIDE/FORMETEROL FUMARATE 80/4.5 mcg INHALER IH SCH ×2 (09:47→21:52)
[2019-03-20] MEDS: DICLOFENAC SODIUM 2 GM TP SCH ×2 (09:48→21:52)
[2019-03-20] MEDS: ESCITALOPRAM OXALATE 10 MG TABLET (FP) PO SCH (09:48)
[2019-03-20] MEDS: PRENATAL VITAMINS W/ FOLIC ACID TABLET (FP) PO SCH (09:48)
[2019-03-20] MEDS: HYDROCORTISONE 1% TOPICAL OINT 30 GM TUBE TP SCH (09:49)
[2019-03-20] MEDS: NICOTINE 21 MG/24 HOURS TOPICAL PATCH TD SCH (09:49)
--- NOTE | 2019-03-20 16:17 | PN ---
[facility] Progress Note Note: Patient with itchy chronic rash bilateral arms and upper back. Itch not relieved with hydrocortisone; changed to Benadryl cream. Will continue to monitor.
[2019-03-20] MEDS: THIAMINE HCL 100 MG TABLET (FP) PO SCH (21:50)
[2019-03-20] MEDS: traZODone HCL 100 MG TABLET (FP) PO SCH (21:50)
[2019-03-20] MEDS: hydrOXYzine PAMOATE 50 MG CAPSULE (FP) PO PRN (21:50)
[2019-03-20] MEDS: QUEtiapine FUMARATE 300 MG TABLET PO SCH (21:50)
[2019-03-21] MEDS: VITAMINS A AND D TOPICAL OINTMENT 60 GM TUBE TP SCH ×4 (00:15→18:33)
[2019-03-21] MEDS: ABACAVIR/DOLUTEGRAVIR/LAMIVUDI (TRIUMEQ) TABLET -NF PO SCH (07:04)
[2019-03-21] MEDS ORDERED: COLLOIDAL OATMEAL 1 BAR EACH TP PRN (09:39)
[2019-03-21] MEDS: PRENATAL VITAMINS W/ FOLIC ACID TABLET (FP) PO SCH (10:24)
[2019-03-21] MEDS: DICLOFENAC SODIUM 2 GM TP SCH ×2 (10:25→21:36)
[2019-03-21] MEDS: ESCITALOPRAM OXALATE 10 MG TABLET (FP) PO SCH (10:25)
[2019-03-21] MEDS: BUDESONIDE/FORMETEROL FUMARATE 80/4.5 mcg INHALER IH SCH ×2 (10:25→21:35)
[2019-03-21] MEDS: NICOTINE 21 MG/24 HOURS TOPICAL PATCH TD SCH (10:26)
[2019-03-21] MEDS ORDERED: BISMUTH SUBSALICYLATE 262 MG/15 ML BTL PO ONE (15:20)
[2019-03-21] MEDS ORDERED: PT OWN MED DRAWER 7, Y5N ONE (17:36)
[2019-03-21] MEDS: THIAMINE HCL 100 MG TABLET (FP) PO SCH (21:33)
[2019-03-21] MEDS: QUEtiapine FUMARATE 300 MG TABLET PO SCH (21:34)
[2019-03-21] MEDS: hydrOXYzine PAMOATE 50 MG CAPSULE (FP) PO PRN (21:34)
[2019-03-21] MEDS: traZODone HCL 100 MG TABLET (FP) PO SCH (21:34)
[2019-03-21] MEDS: MELATONIN 5 MG TABLETS PO PRN (21:35)
[2019-03-21] MEDS: MINERAL OIL/PETROLAT/WATER TOPICAL CREAM 113 GM JAR TP PRN (21:36)
[2019-03-22] MEDS: VITAMINS A AND D TOPICAL OINTMENT 60 GM TUBE TP SCH ×5 (00:44→23:29)
[2019-03-22] MEDS ORDERED: PT OWN MED DRAWER 7, Y5N ONE (01:21)
[2019-03-22] MEDS: ABACAVIR/DOLUTEGRAVIR/LAMIVUDI (TRIUMEQ) TABLET -NF PO SCH (07:40)
[2019-03-22] MEDS: BUDESONIDE/FORMETEROL FUMARATE 80/4.5 mcg INHALER IH SCH ×2 (10:06→21:38)
[2019-03-22] MEDS: NICOTINE 21 MG/24 HOURS TOPICAL PATCH TD SCH (10:06)
[2019-03-22] MEDS: ESCITALOPRAM OXALATE 10 MG TABLET (FP) PO SCH (10:06)
[2019-03-22] MEDS: PRENATAL VITAMINS W/ FOLIC ACID TABLET (FP) PO SCH (10:06)
[2019-03-22] MEDS: DICLOFENAC SODIUM 2 GM TP SCH ×2 (10:07→21:39)
[2019-03-22] MEDS: AMMONIUM LACTATE 12% LOTION 225 GM BOTTLE TP PRN (13:01)
--- NOTE | 2019-03-22 15:51 | PN ---
Psychiatric Progress Note Vital Signs: Vital Signs Period Temp Pulse Resp BP Sys/Kimble Pulse Ox Last 24 Hr 97.5 F 66-86 18-18 111-121/73-78 Date of Session: 03/22/19 Chief Complaint:: " I can't sleep." HPI: Patient reports difficultly sleeping through the night. ROS: Patient coherent, alert and oriented X3. Current Medications: Active Medications Generic Name Dose Route Start Last Admin Trade Name Freq PRN Reason Stop Dose Admin Abacavir/Dolutegravir/Lamivudine 1 each 03/16/19 08:00 03/22/19 07:40 Triumeq (Non-Formulary) PO 1 each DAILY@0800 CAITY Administration Al Hydroxide/Mg Hydroxide 30 ml 03/15/19 15:33 03/21/19 11:37 Mylanta Oral Suspension - PO 30 ml Q6H PRN Administration DYSPEPSIA Albuterol Sulfate 2 puff 03/15/19 15:34 Ventolin Hfa Inhaler - IH Q4H PRN SHORT OF BREATH/WHEEZING Budesonide/Formoterol Fumarate 2 puff 03/15/19 22:00 03/22/19 10:06 Symbicort 80/4.5mcg - IH 2 puff BID CAITY Administration Colloidal Oatmeal 1 applic 03/21/19 09:39 Aveeno Soap - TP DAILY PRN HYGEINE Escitalopram Oxalate 10 mg 03/16/19 10:00 03/22/19 10:06 Lexapro - PO 10 mg DAILY CAITY Administration Eucalyptus/Menthol/Phenol/Sorbitol 1 each 03/15/19 15:33 Cepastat Lozenge - MM Q4H PRN SORE THROAT Guaifenesin 10 ml 03/15/19 15:33 Robitussin - PO Q6H PRN COUGH Hydroxyzine Pamoate 50 mg 03/15/19 15:33 03/21/19 21:34 Vistaril - PO 50 mg Q4H PRN Administration AGITATION Ibuprofen 400 mg 03/15/19 15:33 Motrin - PO Q6H PRN Pain Level 4-6 Lactic Acid 1 applic 03/22/19 09:13 03/22/19 13:01 Lac-Hydrin 12 TP 1 applic BID PRN Administration DRY SKIN Loperamide HCl 4 mg 03/15/19 15:33 Imodium - PO Q6H PRN DIARRHEA Magnesium Citrate 300 ml 03/15/19 15:33 Citroma - PO Q48H PRN CONSTIPATION Magnesium Hydroxide 30 ml 03/15/19 15:33 Milk Of Magnesia - PO DAILY PRN CONSTIPATION Melatonin 5 mg 03/15/19 22:00 03/21/19 21:35 Melatonin PO 5 mg HS PRN Administration INSOMNIA Multi-Ingredient Lotion 1 applic 03/21/19 09:39 03/21/19 21:36 Eucerin (Small Jar) - TP 1 applic BID PRN Administration DRY SKIN Nicotine 21 mg 03/16/19 10:00 03/22/19 10:06 Nicoderm Patch - TD Not Given DAILY CAITY Nicotine Polacrilex 2 mg 03/15/19 15:33 Nicorette Gum - BUC Q2H PRN NICOTINE REPLACEMENT RX Non-Formulary Medication 2 gm 03/16/19 22:00 03/22/19 10:07 Diclofenac Sodium [Pennsaid] TP Not Given BID CAITY Multivit/Folic Acid/Iron 1 tab 03/16/19 10:00 03/22/19 10:06 Vitamins (Sjr) - PO 1 tab DAILY CAITY Administration Pseudoephedrine/Triprolidine 1 combo 03/15/19 15:33 Actifed - PO TID PRN NASAL CONGESTION Quetiapine Fumarate 300 mg 03/15/19 22:00 03/21/19 21:34 Seroquel - PO 300 mg HS CAITY Administration Thiamine HCl 100 mg 03/15/19 22:00 03/21/19 21:33 Vitamin B1 - PO 100 mg HS CAITY Administration Trazodone HCl 200 mg 03/16/19 22:00 03/21/19 21:34 Desyrel - PO 200 mg HS CAITY Administration Vitamin A/Vitamin D 1 applic 03/17/19 12:00 03/22/19 12:40 Vitamin A & D Top Oint - TP 1 applic Q6HPO CAITY Administration Medication(s) Change(s): Yes. Will d/c Melatonin 5mg and order Melatonin 10mg Current Side Effect: No Lab tests ordered: No Lab tests reviewed: Yes Provider note:: Patient reports difficulty sleeping. Dr. St's note read and appreciated. Patient is currently prescribed seroquel 300mg + trazodone 200mg HS. Will d/c Melatonin 5mg and order Melatonin 10mg HS PRN. Verbal consent given. Patient educated on the importance of Sleep hygiene. Patient satified and receptive to feedback. Total face to face time:: 20 Mental Status Exam - Mental Status Exam Alert and Oriented to: Time, Place, Person Cognitive Function: Good Patient Appearance: Well Groomed Mood: Euthymic Affect: Mood Congruent Patient Behavior: Cooperative Speech Pattern: Appropriate Voice Loudness: Normal Thought Process: Goal Oriented Thought Disorder: Not Present Hallucinations: Denies Suicidal Ideation: Denies Homicidal Ideation: Denies Insight/Judgement: Poor Sleep: Poorly Appetite: Fair Muscle strength/Tone: Normal Gait/Station: Normal Psychiatric Treatment Plan - Problem List (1) Cannabis dependence Current Visit: Yes (2) Cocaine dependence Current Visit: Yes Qualifiers: Substance use status: uncomplicated Qualified Code(s): F14.20 - Cocaine dependence, uncomplicated (3) Substance-induced sleep disorder Current Visit: Yes (4) Nicotine dependence Current Visit: Yes Qualifiers: Nicotine product type: cigarettes Substance use status: uncomplicated Qualified Code(s): F17.210 - Nicotine dependence, cigarettes, uncomplicated (5) Paranoid schizophrenia Current Visit: Yes
[2019-03-22] MEDS: THIAMINE HCL 100 MG TABLET (FP) PO SCH (21:38)
[2019-03-22] MEDS: traZODone HCL 100 MG TABLET (FP) PO SCH (21:38)
[2019-03-22] MEDS: QUEtiapine FUMARATE 300 MG TABLET PO SCH (21:38)
[2019-03-22] MEDS: hydrOXYzine PAMOATE 50 MG CAPSULE (FP) PO PRN (21:39)
[2019-03-23] MEDS ORDERED: PT OWN MED DRAWER 7, Y5N ONE ×3 (05:57→09:06)
[2019-03-23] MEDS: VITAMINS A AND D TOPICAL OINTMENT 60 GM TUBE TP SCH ×4 (06:18→23:17)
[2019-03-23] MEDS: ABACAVIR/DOLUTEGRAVIR/LAMIVUDI (TRIUMEQ) TABLET -NF PO SCH (07:57)
[2019-03-23] MEDS: hydrOXYzine PAMOATE 50 MG CAPSULE (FP) PO PRN ×3 (09:02→21:18)
[2019-03-23] MEDS: MINERAL OIL/PETROLAT/WATER TOPICAL CREAM 113 GM JAR TP PRN (09:02)
[2019-03-23] MEDS: ESCITALOPRAM OXALATE 10 MG TABLET (FP) PO SCH (09:03)
[2019-03-23] MEDS: AMMONIUM LACTATE 12% LOTION 225 GM BOTTLE TP PRN (09:03)
[2019-03-23] MEDS: NICOTINE 21 MG/24 HOURS TOPICAL PATCH TD SCH (09:05)
[2019-03-23] MEDS: DICLOFENAC SODIUM 2 GM TP SCH ×2 (09:08→21:16)
[2019-03-23] MEDS: BUDESONIDE/FORMETEROL FUMARATE 80/4.5 mcg INHALER IH SCH ×2 (09:09→21:15)
[2019-03-23] MEDS: PRENATAL VITAMINS W/ FOLIC ACID TABLET (FP) PO SCH (09:09)
[2019-03-23] MEDS: QUEtiapine FUMARATE 300 MG TABLET PO SCH (21:15)
[2019-03-23] MEDS: traZODone HCL 100 MG TABLET (FP) PO SCH (21:15)
[2019-03-23] MEDS: THIAMINE HCL 100 MG TABLET (FP) PO SCH (21:15)
[2019-03-23] MEDS: MELATONIN 5 MG TABLETS PO PRN (21:16)
[2019-03-24] MEDS: VITAMINS A AND D TOPICAL OINTMENT 60 GM TUBE TP SCH ×4 (06:52→23:46)
[2019-03-24] MEDS: ABACAVIR/DOLUTEGRAVIR/LAMIVUDI (TRIUMEQ) TABLET -NF PO SCH (07:28)
[2019-03-24] MEDS ORDERED: PT OWN MED DRAWER 7, Y5N ONE ×2 (07:29→09:51)
[2019-03-24] MEDS: PRENATAL VITAMINS W/ FOLIC ACID TABLET (FP) PO SCH (09:58)
[2019-03-24] MEDS: NICOTINE 21 MG/24 HOURS TOPICAL PATCH TD SCH (09:58)
[2019-03-24] MEDS: DICLOFENAC SODIUM 2 GM TP SCH ×2 (09:58→22:07)
[2019-03-24] MEDS: BUDESONIDE/FORMETEROL FUMARATE 80/4.5 mcg INHALER IH SCH ×2 (09:58→22:04)
[2019-03-24] MEDS: ESCITALOPRAM OXALATE 10 MG TABLET (FP) PO SCH (09:58)
[2019-03-24] MEDS ORDERED: SODIUM PHOSPHATE/NA BIPHOS 133 ML ENEMA PR ONE (12:10)
--- NOTE | 2019-03-24 12:10 | PN ---
S Progress Note Note: constipated,requested fleet enema Vital Signs Temperature 97.2 F L 03/24/19 07:27 Pulse Rate 84 03/24/19 09:37 Respiratory Rate 18 03/24/19 07:27 Blood Pressure 108/80 03/24/19 09:37 O2 Sat by Pulse Oximetry (%) flet enema ordered closed monitoring
--- NOTE | 2019-03-24 13:19 | PN ---
[facility] Progress Note Note: jerad disregard note on this patient at 12.09,the note belong to other patient
[2019-03-24] MEDS: QUEtiapine FUMARATE 300 MG TABLET PO SCH (22:04)
[2019-03-24] MEDS: traZODone HCL 100 MG TABLET (FP) PO SCH (22:04)
[2019-03-24] MEDS: THIAMINE HCL 100 MG TABLET (FP) PO SCH (22:04)
[2019-03-24] MEDS: hydrOXYzine PAMOATE 50 MG CAPSULE (FP) PO PRN (22:05)
[2019-03-24] MEDS: MELATONIN 5 MG TABLETS PO PRN (22:05)
[2019-03-25] MEDS: VITAMINS A AND D TOPICAL OINTMENT 60 GM TUBE TP SCH ×4 (06:20→23:17)
[2019-03-25] MEDS: ABACAVIR/DOLUTEGRAVIR/LAMIVUDI (TRIUMEQ) TABLET -NF PO SCH (07:00)
[2019-03-25] MEDS ORDERED: PT OWN MED DRAWER 7, Y5N ONE ×3 (07:01→19:22)
[2019-03-25] MEDS: ESCITALOPRAM OXALATE 10 MG TABLET (FP) PO SCH (10:17)
[2019-03-25] MEDS: DICLOFENAC SODIUM 2 GM TP SCH ×2 (10:17→21:20)
[2019-03-25] MEDS: PRENATAL VITAMINS W/ FOLIC ACID TABLET (FP) PO SCH (10:17)
[2019-03-25] MEDS: NICOTINE 21 MG/24 HOURS TOPICAL PATCH TD SCH (10:18)
[2019-03-25] MEDS: BUDESONIDE/FORMETEROL FUMARATE 80/4.5 mcg INHALER IH SCH ×2 (10:18→21:21)
[2019-03-25] MEDS: hydrOXYzine PAMOATE 50 MG CAPSULE (FP) PO PRN (21:20)
[2019-03-25] MEDS: QUEtiapine FUMARATE 300 MG TABLET PO SCH (21:20)
[2019-03-25] MEDS: MELATONIN 5 MG TABLETS PO PRN (21:20)
[2019-03-25] MEDS: traZODone HCL 100 MG TABLET (FP) PO SCH (21:20)
[2019-03-25] MEDS: THIAMINE HCL 100 MG TABLET (FP) PO SCH (21:20)
[2019-03-26] MEDS: VITAMINS A AND D TOPICAL OINTMENT 60 GM TUBE TP SCH ×3 (06:23→21:39)
[2019-03-26] MEDS: ABACAVIR/DOLUTEGRAVIR/LAMIVUDI (TRIUMEQ) TABLET -NF PO SCH (07:06)
[2019-03-26] MEDS: ESCITALOPRAM OXALATE 10 MG TABLET (FP) PO SCH (09:46)
[2019-03-26] MEDS: BUDESONIDE/FORMETEROL FUMARATE 80/4.5 mcg INHALER IH SCH ×2 (09:46→21:41)
[2019-03-26] MEDS: PRENATAL VITAMINS W/ FOLIC ACID TABLET (FP) PO SCH (09:46)
[2019-03-26] MEDS: DICLOFENAC SODIUM 2 GM TP SCH ×2 (09:46→21:40)
[2019-03-26] MEDS: NICOTINE 21 MG/24 HOURS TOPICAL PATCH TD SCH (09:46)
[2019-03-26] MEDS: THIAMINE HCL 100 MG TABLET (FP) PO SCH (21:39)
[2019-03-26] MEDS: hydrOXYzine PAMOATE 50 MG CAPSULE (FP) PO PRN (21:39)
[2019-03-26] MEDS: traZODone HCL 100 MG TABLET (FP) PO SCH (21:39)
[2019-03-26] MEDS: QUEtiapine FUMARATE 300 MG TABLET PO SCH (21:39)
[2019-03-26] MEDS: MELATONIN 5 MG TABLETS PO PRN (21:41)
[2019-03-27] MEDS: VITAMINS A AND D TOPICAL OINTMENT 60 GM TUBE TP SCH ×4 (01:32→19:43)
[2019-03-27] MEDS ORDERED: PT OWN MED DRAWER 7, Y5N ONE ×3 (06:37→19:43)
[2019-03-27] MEDS: ABACAVIR/DOLUTEGRAVIR/LAMIVUDI (TRIUMEQ) TABLET -NF PO SCH (07:21)
[2019-03-27] MEDS: PRENATAL VITAMINS W/ FOLIC ACID TABLET (FP) PO SCH (09:53)
[2019-03-27] MEDS: BUDESONIDE/FORMETEROL FUMARATE 80/4.5 mcg INHALER IH SCH ×2 (09:53→21:17)
[2019-03-27] MEDS: NICOTINE 21 MG/24 HOURS TOPICAL PATCH TD SCH (09:53)
[2019-03-27] MEDS: ESCITALOPRAM OXALATE 10 MG TABLET (FP) PO SCH (09:53)
[2019-03-27] MEDS: DICLOFENAC SODIUM 2 GM TP SCH ×2 (09:56→21:17)
[2019-03-27] MEDS: THIAMINE HCL 100 MG TABLET (FP) PO SCH (21:17)
[2019-03-27] MEDS: traZODone HCL 100 MG TABLET (FP) PO SCH (21:17)
[2019-03-27] MEDS: QUEtiapine FUMARATE 300 MG TABLET PO SCH (21:17)
[2019-03-27] MEDS: MELATONIN 5 MG TABLETS PO PRN (21:18)
[2019-03-27] MEDS: hydrOXYzine PAMOATE 50 MG CAPSULE (FP) PO PRN (21:19)
[2019-03-28] MEDS: VITAMINS A AND D TOPICAL OINTMENT 60 GM TUBE TP SCH ×4 (00:04→18:13)
[2019-03-28] MEDS ORDERED: PT OWN MED DRAWER 7, Y5N ONE ×3 (03:16→08:43)
[2019-03-28] MEDS: ABACAVIR/DOLUTEGRAVIR/LAMIVUDI (TRIUMEQ) TABLET -NF PO SCH (07:18)
[2019-03-28] MEDS: DICLOFENAC SODIUM 2 GM TP SCH ×2 (10:08→21:14)
[2019-03-28] MEDS: ESCITALOPRAM OXALATE 10 MG TABLET (FP) PO SCH (10:09)
[2019-03-28] MEDS: PRENATAL VITAMINS W/ FOLIC ACID TABLET (FP) PO SCH (10:10)
[2019-03-28] MEDS: NICOTINE 21 MG/24 HOURS TOPICAL PATCH TD SCH (10:12)
[2019-03-28] MEDS: BUDESONIDE/FORMETEROL FUMARATE 80/4.5 mcg INHALER IH SCH ×2 (11:16→21:14)
--- NOTE | 2019-03-28 15:05 | PN ---
[facility] Progress Note Note: Patient is scheduled for discharge tomorrow. Scripts for 30 days supply of medications(Seroquel 300 mg/hs, Lexapro 10 mg/d, Trazadone 200 mg/hs) will be electronically transmitted to [facility] at [address] [place] [address]
--- NOTE | 2019-03-28 15:24 | PN ---
S Progress Note Note: PT SCHEDULED FOR DISCHARGE TOMORROW. PT WAS SEEN TODAY. AND SHE REPORTS SHE HAS A PCP TRINITY DAVALOS AT [facility] [address] [place] [address]. PT HAS BEEN REFERRED TO SAME LOCATION FOR CD AFTERCARE. PT REPORTS SHE HAS OWN MEDS AND HAS APPOINTMENT TO SEE HER PMD ON 03/29/19 AFTER DISCHARGE. Vital Signs 03/28/19 09:07 Pulse Rate 70 Blood Pressure 108/62 Home Medications Medication Instructions Recorded Albuterol Sulfate Inhaler - 2 puff IH Q4H PRN #1 inhaler 07/28/18 [Ventolin HFA Inhaler -] Abacavir/Dolutegravir/Lamivudi 1 each PO DAILY 03/12/19 [Triumeq Tablet] Amoxicillin - [Amoxicillin 875mg 875 mg PO Q12H 03/12/19 Tablet -] Oxiconazole Nitrate 30 gm TP BID 03/12/19 traZODone HCL [Trazodone HCl] 200 mg PO HS 03/12/19 Budesonide/Formeterol Fumarate 2 puff IH BID 03/15/19 [SYMBICORT 80/4.5mcg -] Diclofenac Sodium [Pennsaid] 2 gm TP BID 03/16/19 Oxiconazole Nitrate 30 gm TP 03/16/19 Escitalopram Oxalate [Lexapro -] 10 mg PO DAILY #30 tablet 03/28/19 Quetiapine Fumarate [Seroquel -] 300 mg PO HS #30 tablet 03/28/19 traZODone HCL [Desyrel -] 200 mg PO HS #60 tablet 03/28/19 NAD MEDICALLY STABLE. PLAN:FOLLOW UP WITH CD RECOMMENDATIONS FOLLOW UP WITH PCP FOR MEDICAL MANAGEMENT ON 03/29/19.
[2019-03-28] MEDS: THIAMINE HCL 100 MG TABLET (FP) PO SCH (21:13)
[2019-03-28] MEDS: hydrOXYzine PAMOATE 50 MG CAPSULE (FP) PO PRN (21:13)
[2019-03-28] MEDS: traZODone HCL 100 MG TABLET (FP) PO SCH (21:14)
[2019-03-28] MEDS: QUEtiapine FUMARATE 300 MG TABLET PO SCH (21:14)
[2019-03-28] MEDS: MELATONIN 5 MG TABLETS PO PRN (21:14)
[2019-03-29] MEDS: VITAMINS A AND D TOPICAL OINTMENT 60 GM TUBE TP SCH ×2 (00:16→06:47)
[2019-03-29] MEDS ORDERED: PT OWN MED DRAWER 7, Y5N ONE (03:09)
[2019-03-29] MEDS: ABACAVIR/DOLUTEGRAVIR/LAMIVUDI (TRIUMEQ) TABLET -NF PO SCH (07:01)
[2019-03-29 07:27] VITALS: TEMP 98
[2019-03-29] MEDS: PRENATAL VITAMINS W/ FOLIC ACID TABLET (FP) PO SCH (09:04)
[2019-03-29] MEDS: ESCITALOPRAM OXALATE 10 MG TABLET (FP) PO SCH (09:04)
[2019-03-29] MEDS: DICLOFENAC SODIUM 2 GM TP SCH (09:05)
[2019-03-29] MEDS: BUDESONIDE/FORMETEROL FUMARATE 80/4.5 mcg INHALER IH SCH (09:05)
[2019-03-29 09:46] VITALS: BP 117/80; PULSE 86
--- NOTE | 2019-03-29 11:15 | PN ---
S Progress Note Note: PT WAS DISCHARGED TODAY SCHEDULED TO FOLLOW UP WITH AFTERCARE RECOMMENDATIONS. Vital Signs 03/29/19 03/29/19 00:30 03:30 Temperature Pulse Rate Respiratory 18 18 Rate Blood Pressure 03/29/19 03/29/19 07:26 09:45 Temperature 98.0 F Pulse Rate 66 86 Respiratory 18 Rate Blood Pressure 119/76 117/80
== END 2019-03-29 09:10 | disposition home or self-care (01) | DRG 772 ==
LOC: YASAS 13:04 → Y3E 13:05
PROVIDERS: ADMIT Neuromusculoskeletal Medicine & OMM; ATTEND Neuromusculoskeletal Medicine & OMM
PROC: HZ42ZZZ Group Counseling for Substance Abuse Treatment, Cognitive-Behavioral (ICD-10-PCS; principal; 2019-03-15)
DX: F10.20 Alcohol dependence, uncomplicated (principal); F14.20 Cocaine dependence, uncomplicated; F12.20 Cannabis dependence, uncomplicated; F17.210 Nicotine dependence, cigarettes, uncomplicated; F20.0 Paranoid schizophrenia; F19.282 Other psychoactive substance dependence with psychoactive substance-induced sleep disorder; Z21 Asymptomatic human immunodeficiency virus [HIV] infection status; J43.8 Other emphysema; K21.9 Gastro-esophageal reflux disease without esophagitis; K59.00 Constipation, unspecified; R21 Rash and other nonspecific skin eruption; J45.909 Unspecified asthma, uncomplicated